=== PATIENT | female | born 1980 | race Caucasian/White ===

== ENCOUNTER → 2016-06-25 | Outpatient (CLI) | payer OTHER ==
[2016-06-25 20:46] LABS: FOLATE > 24.0 NG/ML; VITAMIN B12 LEVEL 1085 PG/ML
== END ==
LOC: M WUC 16:18
PROVIDERS: ATTEND Physician Assistant Medical
DX: E55.9 Vitamin D deficiency, unspecified (principal); E53.9 Vitamin B deficiency, unspecified

== ENCOUNTER → 2016-10-31 | Outpatient (CLI) | payer OTHER ==
--- NOTE | 2016-10-31 17:45 | REP ---
Clinical: Trauma. Technique: AP, lateral, bilateral oblique views of the right elbow. Findings: Nondisplaced radial head fracture is appreciated with underlying swelling. Lateral view demonstrates elevation of the fat pads consistent with joint effusion. Impression: Nondisplaced fracture of the radial head with joint effusion and swelling. Signed by Daniel Garcia MD 10/31/2016 05:36 P
== END ==
LOC: M WUC 17:19
PROVIDERS: ATTEND Physician Assistant
DX: S50.01XA Contusion of right elbow, initial encounter (principal); W18.30XA Fall on same level, unspecified, initial encounter; Y92.009 Unspecified place in unspecified non-institutional (private) residence as the place of occurrence of the external cause

== ENCOUNTER → 2016-11-11 | Outpatient (CLI) | payer OTHER | LOC: M WUC 08:12 | PROVIDERS: ATTEND Physician Assistant Medical | DX: E55.9 Vitamin D deficiency, unspecified (principal) ==

== ENCOUNTER → 2016-12-04 | Outpatient (REF) | payer OTHER | LOC: M SFHCWAGY 09:29 | PROVIDERS: ATTEND Nurse Practitioner Women's Health | DX: Z12.4 Encounter for screening for malignant neoplasm of cervix (principal) ==

== ENCOUNTER → 2017-01-17 | Outpatient (REF) | payer OTHER | LOC: M LAB REF 18:19 | PROVIDERS: ATTEND Physician Assistant | DX: J02.9 Acute pharyngitis, unspecified (principal) ==

== ENCOUNTER → 2017-02-22 | Outpatient (REF) | payer OTHER ==
[2017-02-23 11:49] LABS: BASO # 0.1 10^3/uL (0.0-0.2); BASO % 1.3 % (0.0-1.0); EOS # 0.4 10^3/uL (0.0-0.50); HEMATOCRIT 41.1 % (36.0-47.0); HEMOGLOBIN 14.2 g/dl (12.0-16.0); IMMATURE GRANULOCYTE % 0.1 % (0-0); LYMPH # 3.7 10^3/uL (1.5-4.5); LYMPH % 42.2 % (24.0-44.0); MEAN CORPUSCULAR HEMOGLOBIN 30.5 pg (27.0-33.0); MEAN CORPUSCULAR HGB CONC 34.5 g/dl (32.0-36.5); MEAN CORPUSCULAR VOLUME 88.2 fl (80.0-96.0); MONO # 0.5 10^3/uL (0.0-0.8); NEUTROPHILS % 46.4 % (36.0-66.0); PLATELET COUNT, AUTOMATED 269 10^3/uL (150-450); RED BLOOD COUNT 4.66 10^6/uL (4.00-5.40); RED CELL DISTRIBUTION WIDTH 11.9 % (11.5-14.5); WHITE BLOOD COUNT 8.7 10^3/uL (4.0-10.0)
[2017-02-23 11:59] LABS: ESTIMATED AVERAGE GLUCOSE 154 MG/DL (60-110)
[2017-02-23 12:09] LABS: ALBUMIN 4.1 GM/DL (3.2-5.2); ALBUMIN/GLOBULIN RATIO 1.21 (1.00-1.93); ALKALINE PHOSPHATASE 67 U/L (45-117); ALT/SGPT 91 U/L (12-78); ANION GAP 10 MEQ/L (8-16); AST/SGOT 79 U/L (7-37); BILIRUBIN,TOTAL 0.9 MG/DL (0.2-1.0); BLOOD UREA NITROGEN 12 MG/DL (7-18); CALCIUM LEVEL 9.4 MG/DL (8.5-10.1); CARBON DIOXIDE LEVEL 29 MEQ/L (21-32); CHLORIDE LEVEL 99 MEQ/L (98-107); CHOLESTEROL LEVEL 213 MG/DL (<200); CHOLESTEROL RISK RATIO 5.756 (<5); CREATININE FOR GFR 0.68 MG/DL (0.55-1.02); GLOMERULAR FILTRATION RATE > 60.0 (>60); GLUCOSE, FASTING 202 MG/DL (70-105); HDL CHOLESTEROL 37 MG/DL (>40); NON-HDL-C 176 MG/DL; POTASSIUM SERUM 3.8 MEQ/L (3.5-5.1); SODIUM LEVEL 138 MEQ/L (136-145); TOTAL PROTEIN 7.5 GM/DL (6.4-8.2); TRIGLYCERIDES LEVEL 430 MG/DL (<150)
[2017-02-23 12:20] LABS: CREATININE, URINE 92.4 MG/DL; MALB URINE SIEMENS 33.8 MG/L; MAU/CREAT RATIO 36.5 MCG/MG (0.0-30.0)
== END ==
LOC: M SFHCLERA 15:34
DX: I10 Essential (primary) hypertension (principal)

== ENCOUNTER → 2017-03-05 | Outpatient (CLI) | payer OTHER ==
[2017-03-05 21:01] LABS: TOTAL 25(OH) VITAMIN D 24.5 NG/ML (30.0-100.0); VITAMIN B12 LEVEL 1253 PG/ML
[2017-03-08 11:42] LABS: FOLATE > 24.0 NG/ML
== END ==
LOC: M WUC 13:30
DX: E55.9 Vitamin D deficiency, unspecified (principal); E53.9 Vitamin B deficiency, unspecified

== ENCOUNTER → 2017-03-05 | Outpatient (CLI) | payer OTHER ==
[2017-03-05 20:38] LABS: ESTIMATED AVERAGE GLUCOSE 160 MG/DL (60-110); HEMOGLOBIN A1c 7.2 %
== END ==
LOC: M WUC 13:26
DX: R73.09 Other abnormal glucose (principal)

== ENCOUNTER → 2017-06-30 | Outpatient (CLI) | payer OTHER ==
[2017-06-30 19:53] LABS: TOTAL 25(OH) VITAMIN D 23.7 NG/ML (30.0-100.0)
[2017-06-30 19:54] LABS: VITAMIN B12 LEVEL 609 PG/ML (247-911)
[2017-06-30 19:55] LABS: FOLATE 22.2 NG/ML (>5.4)
== END ==
LOC: M WUC 16:21
DX: E55.9 Vitamin D deficiency, unspecified (principal); E53.8 Deficiency of other specified B group vitamins; R20.9 Unspecified disturbances of skin sensation
CPT/HCPCS: 82746

== ENCOUNTER → 2017-08-17 | Outpatient (REF) | payer OTHER ==
[2017-08-17 11:30] LABS: ESTIMATED AVERAGE GLUCOSE 134 MG/DL (60-110); HEMOGLOBIN A1c 6.3 %
== END ==
LOC: M SFHCLERA 09:19
DX: E11.9 Type 2 diabetes mellitus without complications (principal)

== ENCOUNTER → 2018-05-17 | Outpatient (CLI) | payer OTHER ==
[2018-05-17 09:48] LABS: BASO # 0.1 10^3/uL (0.0-0.2); BASO % 1.4 % (0.0-1.0); EOS # 0.3 10^3/uL (0.0-0.50); EOS % 3.4 % (0.0-3.0); HEMATOCRIT 39.8 % (36.0-47.0); HEMOGLOBIN 13.6 g/dl (12.0-15.5); LYMPH # 3.5 10^3/uL (1.5-4.5); LYMPH % 47.8 % (24.0-44.0); MEAN CORPUSCULAR HEMOGLOBIN 30.4 pg (27.0-33.0); MEAN CORPUSCULAR HGB CONC 34.2 g/dl (32.0-36.5); MONO # 0.4 10^3/uL (0.0-0.8); MONO % 5.4 % (0.0-5.0); NEUTROPHILS # 3.1 10^3/uL (1.8-7.7); NEUTROPHILS % 41.9 % (36.0-66.0); PLATELET COUNT, AUTOMATED 258 10^3/uL (150-450); RED BLOOD COUNT 4.47 10^6/uL (4.00-5.40); WHITE BLOOD COUNT 7.4 10^3/uL (4.0-10.0)
[2018-05-17 10:26] LABS: CREATININE, URINE 59.9 MG/DL; MALB URINE SIEMENS 12.2 MG/L; MAU/CREAT RATIO 20.3 MCG/MG (0.0-30.0)
[2018-05-17 10:27] LABS: ALBUMIN 3.9 GM/DL (3.2-5.2); ALT/SGPT 74 U/L (12-78); BILIRUBIN,TOTAL 0.7 MG/DL (0.2-1.0); BLOOD UREA NITROGEN 12 MG/DL (7-18); CALCIUM LEVEL 8.9 MG/DL (8.5-10.1); CARBON DIOXIDE LEVEL 26 MEQ/L (21-32); CHLORIDE LEVEL 100 MEQ/L (98-107); CHOLESTEROL LEVEL 242 MG/DL (<200); CHOLESTEROL RISK RATIO 7.117 (<5); CREATININE FOR GFR 0.71 MG/DL (0.55-1.30); GLOMERULAR FILTRATION RATE > 60.0 (>60); GLUCOSE, FASTING 132 MG/DL (70-100); HDL CHOLESTEROL 34 MG/DL (>40); NON-HDL-C 208 MG/DL; POTASSIUM SERUM 3.9 MEQ/L (3.5-5.1); SODIUM LEVEL 136 MEQ/L (136-145); TOTAL PROTEIN 7.2 GM/DL (6.4-8.2); TRIGLYCERIDES LEVEL 541 MG/DL (<150)
[2018-05-17 10:28] LABS: HEMOGLOBIN A1c 6.9 %
== END ==
LOC: M WUC 08:11
PROVIDERS: ATTEND Family Medicine
DX: E11.9 Type 2 diabetes mellitus without complications (principal)

== ENCOUNTER → 2018-06-29 | Outpatient (CLI) | payer OTHER ==
[2018-06-29 21:43] LABS: FOLATE 22.1 NG/ML (>5.4); TOTAL 25(OH) VITAMIN D 43.6 NG/ML (30.0-100.0)
== END ==
LOC: M WUC 16:59
PROVIDERS: ATTEND Physician Assistant Medical
DX: R53.83 Other fatigue (principal); E55.9 Vitamin D deficiency, unspecified

== ENCOUNTER → 2018-08-16 | Outpatient (CLI) | payer OTHER ==
[2018-08-16 10:22] LABS: ALT/SGPT 73 U/L (12-78); BILIRUBIN,TOTAL 0.8 MG/DL (0.2-1.0); BLOOD UREA NITROGEN 7 MG/DL (7-18); CARBON DIOXIDE LEVEL 26 MEQ/L (21-32); CHLORIDE LEVEL 100 MEQ/L (98-107); CHOLESTEROL LEVEL 183 MG/DL (<200); CHOLESTEROL RISK RATIO 5.083 (<5); CREATININE FOR GFR 0.73 MG/DL (0.55-1.30); GLOMERULAR FILTRATION RATE > 60.0 (>60); GLUCOSE, FASTING 159 MG/DL (70-100); HDL CHOLESTEROL 36 MG/DL (>40); LDL CHOLESTEROL 74 MG/DL (<100); NON-HDL-C 147 MG/DL; POTASSIUM SERUM 3.8 MEQ/L (3.5-5.1); SODIUM LEVEL 137 MEQ/L (136-145); TOTAL PROTEIN 7.5 GM/DL (6.4-8.2); TRIGLYCERIDES LEVEL 365 MG/DL (<150)
[2018-08-16 11:17] LABS: HEMOGLOBIN A1c 7.4 %
[2018-08-20 08:42] LABS: F002-IgE Milk < 0.10 kU/L (Class 0); F004-IgE Wheat < 0.10 kU/L (Class 0); F013-IgE Peanut < 0.10 kU/L (Class 0); F014-IgE Soybean < 0.10 kU/L (Class 0); F026-IgE Pork < 0.10 kU/L (Class 0); F027-IgE Beef < 0.10 kU/L (Class 0); F245-IgE Egg, Whole < 0.10 kU/L (Class 0); FX02-IgE Food Mix (Sea Foods) Negative (.)
== END ==
LOC: M WUC 08:07
PROVIDERS: ATTEND Family Medicine
DX: K90.49 Malabsorption due to intolerance, not elsewhere classified (principal); E78.5 Hyperlipidemia, unspecified; E11.9 Type 2 diabetes mellitus without complications

== ENCOUNTER → 2018-11-15 | Outpatient (CLI) | payer OTHER ==
[2018-11-15 10:30] LABS: HEMOGLOBIN A1c 6.4 %
== END ==
LOC: M WUC 08:23
PROVIDERS: ATTEND Family Medicine
DX: E11.9 Type 2 diabetes mellitus without complications (principal)

== ENCOUNTER → 2018-11-23 | Outpatient (REF) | payer OTHER ==
[2018-11-26 00:13] LABS: DEHYDROEPIANDROSTERONE SULFATE 71.3 ug/dL (57.3-279.2); TESTOSTERONE FREE (DIRECT) 0.7 pg/mL (0.0-4.2)
== END ==
LOC: M SFHCLERA 16:17
PROVIDERS: ATTEND Family Medicine
DX: E28.1 Androgen excess (principal)

== ENCOUNTER → 2019-05-18 | Outpatient (REF) | payer OTHER ==
[2019-05-18 15:06] LABS: ALBUMIN 4.3 GM/DL (3.2-5.2); ALT/SGPT 75 U/L (12-78); BILIRUBIN,TOTAL 0.7 MG/DL (0.2-1.0); BLOOD UREA NITROGEN 11 MG/DL (7-18); CALCIUM LEVEL 9.6 MG/DL (8.5-10.1); CARBON DIOXIDE LEVEL 29 MEQ/L (21-32); CHLORIDE LEVEL 102 MEQ/L (98-107); CHOLESTEROL LEVEL 214 MG/DL (<200); CHOLESTEROL RISK RATIO 5.631 (<5); GLOMERULAR FILTRATION RATE > 60.0 (>60); GLUCOSE, FASTING 214 MG/DL (70-100); HDL CHOLESTEROL 38 MG/DL (>40); NON-HDL-C 176 MG/DL; POTASSIUM SERUM 4.4 MEQ/L (3.5-5.1); SODIUM LEVEL 138 MEQ/L (136-145); TOTAL PROTEIN 7.9 GM/DL (6.4-8.2); TRIGLYCERIDES LEVEL 641 MG/DL (<150)
[2019-05-18 15:19] LABS: CREATININE, URINE 48.4 MG/DL; MALB URINE SIEMENS 10.7 MG/L; MAU/CREAT RATIO 22.1 MCG/MG (0.0-30.0)
== END ==
LOC: M LABNEURO 13:34
PROVIDERS: ATTEND Family Medicine
DX: E11.9 Type 2 diabetes mellitus without complications (principal)

== ENCOUNTER → 2019-08-29 | Outpatient (CLI) | payer OTHER ==
[2019-08-29 10:55] LABS: BASO # 0.1 10^3/uL (0.0-0.2); BASO % 1.1 % (0.0-1.0); EOS # 0.4 10^3/uL (0.0-0.5); EOS % 4.4 % (0.0-3.0); HEMATOCRIT 45.3 % (36.0-47.0); LYMPH # 3.4 10^3/uL (1.5-5.0); LYMPH % 42.6 % (24.0-44.0); MEAN CORPUSCULAR HEMOGLOBIN 29.7 pg (27.0-33.0); MEAN CORPUSCULAR HGB CONC 33.1 g/dl (32.0-36.5); MEAN CORPUSCULAR VOLUME 89.7 fl (80.0-96.0); MONO # 0.5 10^3/uL (0.0-0.8); MONO % 5.8 % (0.0-5.0); NEUTROPHILS # 3.6 10^3/uL (1.5-8.5); NEUTROPHILS % 45.8 % (36.0-66.0); PLATELET COUNT, AUTOMATED 245 10^3/uL (150-450); RED BLOOD COUNT 5.05 10^6/uL (4.00-5.40); WHITE BLOOD COUNT 7.9 10^3/uL (4.0-10.0)
[2019-08-29 12:15] LABS: BLOOD UREA NITROGEN 12 MG/DL (7-18); CALCIUM LEVEL 9.4 MG/DL (8.5-10.1); CARBON DIOXIDE LEVEL 23 MEQ/L (21-32); CHLORIDE LEVEL 99 MEQ/L (98-107); CHOLESTEROL LEVEL 202 MG/DL (<200); CHOLESTEROL RISK RATIO 5.771 (<5); CREATININE FOR GFR 0.63 MG/DL (0.55-1.30); GLOMERULAR FILTRATION RATE > 60.0 (>60); GLUCOSE, FASTING 140 MG/DL (70-100); HDL CHOLESTEROL 35 MG/DL (>40); NON-HDL-C 167 MG/DL; POTASSIUM SERUM 4.1 MEQ/L (3.5-5.1); SODIUM LEVEL 136 MEQ/L (136-145); TRIGLYCERIDES LEVEL 489 MG/DL (<150)
[2019-08-29 12:27] LABS: MALB URINE SIEMENS 34.7 MG/L
[2019-08-29 15:06] LABS: HEMOGLOBIN A1c 6.5 %
== END ==
LOC: M LAB 09:16
PROVIDERS: ATTEND Family Medicine
DX: E11.9 Type 2 diabetes mellitus without complications (principal); E78.5 Hyperlipidemia, unspecified

== ENCOUNTER → 2019-11-21 | Outpatient (REF) | payer OTHER | LOC: M SFHCWAGY 13:03 | PROVIDERS: ATTEND Nurse Practitioner Women's Health | DX: Z12.4 Encounter for screening for malignant neoplasm of cervix (principal) ==

== ENCOUNTER → 2019-12-25 | Outpatient (CLI) | payer OTHER ==
[2019-12-25 09:03] LABS: BLOOD UREA NITROGEN 10 MG/DL (7-18); CARBON DIOXIDE LEVEL 26 MEQ/L (21-32); CHLORIDE LEVEL 102 MEQ/L (98-107); CHOLESTEROL LEVEL 187 MG/DL (<200); CHOLESTEROL RISK RATIO 4.921 (<5); CREATININE FOR GFR 0.76 MG/DL (0.55-1.30); GLOMERULAR FILTRATION RATE > 60.0 (>60); GLUCOSE, FASTING 136 MG/DL (70-100); HDL CHOLESTEROL 38 MG/DL (>40); LDL CHOLESTEROL 70 MG/DL (<100); NON-HDL-C 149 MG/DL; SODIUM LEVEL 136 MEQ/L (136-145); TRIGLYCERIDES LEVEL 393 MG/DL (<150)
[2019-12-25 11:37] LABS: HEMOGLOBIN A1c 6.4 %
== END ==
LOC: M LAB 07:52
PROVIDERS: ATTEND Family Medicine
DX: E11.9 Type 2 diabetes mellitus without complications (principal); E78.5 Hyperlipidemia, unspecified

== ENCOUNTER 2020-02-26 17:15 | Emergency (ER) | payer OTHER ==
[~2020-02-26] VITALS: Ht 157.5 cm; Wt 82.0 kg
--- OUTSIDE RECORDS SUMMARY | 2020-02-26 17:21 | CCD ---
Author Author [facility] Organization [facility] Address Unknown Phone Unavailable Care Team Providers Care Cheese Production Supervisor Name Role Phone CrowleyEugene love Unavailable PROBLEMS Type Condition ICD9-CM Code [id number] Code Onset Dates Condition S tatus SNOMED Code Notes Problem Vitamin D deficiency E55.9 Active 51731023 Problem Hypertension I10 Active 74736671 Problem Non morbid obesity due to excess calories E66.09 Active 809545075 Problem Body mass index (BMI) 34.0-34.9, adult Z68.34 Active 491816184944828 Problem Chronic fatigue R53.82 Active 99986361 Problem Hypertriglyceridemia E78.1 Active 006434992 Problem Type 2 diabetes mellitus wit hout complication, without long-term current use of insulin E11.9 Active 913648457 Problem Hyperandrogenism E28.8 Active 272726818 Problem Essential hypertension I10 Active 04773343 Problem High triglycerides E78.1 Active 394504381 Problem Hyperlipidemia, unspecified hyperlipidemia type E7 8.5 Active 27274146 Problem Influenza vaccination declined Z28.21 Active 3 72852265 Problem Dyslipidemia E78.5 Active 401439410 Problem Food intolerance K90.49 Active 519664296 Problem Influenza vaccination declined by patient Z28.21 Active 679285840 ALLERGIES Allergen (clinical drug ingredient) Drug/Non Drug Allergy do cumented on EMR Reaction Allergy Type Onset Date Status Seasonal nasal congestion, plugged ears Non Drug Allergy Active ENCOUNTERS from 1980 to 2020-01-16 Encounter Location Date Provider Diagnosis [facility] [address] [place] [address] Dec, Eugene Crowley IMMUNIZATIONS Vaccine Route Administration Date Status Influenza (18 yrs & older) Flublok Unknown Feb 24, 2018 Refused Influenza (6mo & up) Fluzone Unknown May 24, 2018 Ref used Influenza (6mo & up) Fluzone Unknown Dec 04, 2016 Oth ers Influenza (6mo & up) Fluzone Unknown Jan 31, 2014 Ref used SOCIAL HISTORY Tobacco Use: Social History Observation Description Date Details (start date - stop date) Never Smoker Sex Assigned At : Social History Observation Description Sex Assigned At Unknown Audit Question Answer Notes Total Score: 1 Interpretation: Alcohol Education Language: Question Answer Notes Languages spoken: Croatian Voodoo: Question Answer Notes Voodoo 12 Temple Sexual Hx: Question Answer Notes Had sex in the last 12 months (vaginal, oral, or anal)? Yes LMP: 12/05/17 Have you ever had an STD? No Prevention Strategies discussed: Condoms with Men only Use protection? Yes How often? All of the time Drug and Alcohol Question Answer Notes Total Score: 0 Interpretation: No problems reported Alcohol Screening: Question Answer Notes Did you have a drink containing alcohol in the past year? Ye s Points 1 Interpretation Negative How often did you have six or more drinks on one occas ion in the past year? Never (0 points) How many drinks did you have on a typica l day when you were drinking in the past year? 1 or 2 (0 points) How often did you have a drink containing alcohol in t he past year? Monthly or less (1 point) BMI Care Goal Follow-Up Question Answer Notes Above Normal BMI Follow-Up Dietary needs education, Gi ving encouragement to exercise, Weight monitoring Tobacco Use: Question Answer Notes Are you a: never smoker REASON FOR REFERRAL No Information VITAL SIGNS No information MEDICATIONS Medication SIG (Take, Route, Frequency, Duration) Notes Start Da te End Date Status Naproxen 500 MG 1 tablet Orally twice daily as needed for 30 day(s) Active Claritin 10 mg 1 tablet Orally Once a day prn allergies for 30 day(s) Active Nortriptyline HCl 50 MG 1 capsule at bedtime Orally Once a day (Dr Chris santana) Active Sumatriptan Succinate 100 MG 1/2 to 1 tab Orally 2x daily as nee ded (Dr Hampton) Active Metformin HCl 500 MG 1 tab pm with meal Orally Daily for 90 days Active Folic Acid 1 mg 1 tablet Orally every other day (Dr Hampton) Active Hydrochlorothiazide 25 mg 1 tablet Orally Once a day for 90 days Active Atenolol 25 mg 1 tablet Orally bid A ctive Vitamin D3 1000 UNIT 2 capsule Orally Once a day Active Pravastatin Sodium 20 MG 2 tablet Orally Once a day for 90 days Active Vitamin D (Ergocalciferol) 75915 UNIT 1 capsule Orally -Nicole Trickey twice a week Active Jardiance 10 MG 1 tablet Orally Once a day for 90 days Active Restasis 0.05 % 1 into affected eye Ophthalmic Twice a day Active PROCEDURES No Information RESULTS No Results REASON FOR VISIT New Refill Request MEDICAL (GENERAL) HISTORY Type Description Date Medical History hypertension Medical History hyperlipidemia Medical History IBS Medical History dry eye Medical History migraine headaches, Neurology, Nicole Tric villa Medical History vit d deficiency Medical History B12 deficiency Medical History type 2 diabetes without insu oje or complications, controlled on metformin Surgical History colonoscopy 01/24 Surgical History endoscopy 01/24 Surgical History wisdom teeth extract Hospitalization History No Hospitalization history informati on Goals Section No Information Health Concerns No Information MEDICAL EQUIPMENT No Information MENTAL STATUS No Information FUNCTIONAL STATUS No Information ASSESSMENTS No Information PLAN OF TREATMENT Medication Medication Name Sig Start Date Stop Date Metformin HCl 500 MG 1 tab pm with meal Orally Daily for 90 days Jardiance 10 MG 1 tablet Orally Once a day for 90 days Next Appt Details Provider Name:Eugene Crowley, 2020-07-02 03:30:00 PM, [address] [place], [address], Provider Name:Amanda Condon, 2020-11-21 09:00:00 AM, [address] [place], [address], Insurance Providers Payer Name Payer Address Payer Phone Insured Name Patient Relati onship to Insured Coverage Start Date Coverage End Date [facility] [address] [phone] SERGIO KELLY self
--- OUTSIDE RECORDS SUMMARY | 2020-02-26 17:21 | CCD ---
Author Author [facility] Organization [facility] Address Unknown Phone Unavailable Care Team Providers Care Qa Automation Developer Name Role Phone Eugene Crowley Unavailable PROBLEMS Type Condition ICD9-CM Code [id number] Code Onset Dates Condition S tatus SNOMED Code Notes Problem Vitamin D deficiency E55.9 Active 19317900 Problem Hypertension I10 Active 95612235 Problem Non morbid obesity due to excess calories E66.09 Active 462332610 Problem Body mass index (BMI) 34.0-34.9, adult Z68.34 Active 649123206923167 Problem Chronic fatigue R53.82 Active 50911441 Problem Hypertriglyceridemia E78.1 Active 448983629 Problem Type 2 diabetes mellitus wit hout complication, without long-term current use of insulin E11.9 Active 416553977 Problem Hyperandrogenism E28.8 Active 418510895 Problem Essential hypertension I10 Active 90249592 Problem High triglycerides E78.1 Active 131136177 Problem Hyperlipidemia, unspecified hyperlipidemia type E7 8.5 Active 32435616 Problem Influenza vaccination declined Z28.21 Active 3 79925786 Problem Dyslipidemia E78.5 Active 863255904 Problem Food intolerance K90.49 Active 234726178 Problem Influenza vaccination declined by patient Z28.21 Active 752032072 ALLERGIES Allergen (clinical drug ingredient) Drug/Non Drug Allergy do cumented on EMR Reaction Allergy Type Onset Date Status Seasonal nasal congestion, plugged ears Non Drug Allergy Active ENCOUNTERS from 1980 to 2020-02-15 Encounter Location Date Provider Diagnosis [facility] [address] [place] [address] Jan, Eugene Crowley Hypertension I10 IMMUNIZATIONS Vaccine Route Administration Date Status Influenza (18 yrs & older) Flublok Unknown Feb 24, 2018 Refused Influenza (6mo & up) Fluzone Unknown May 24, 2018 Ref used Influenza (6mo & up) Fluzone Unknown Dec 04, 2016 Ot ers Influenza (6mo & up) Fluzone Unknown Jan 31, 2014 Ref used SOCIAL HISTORY Tobacco Use: Social History Observation Description Date Details (start date - stop date) Never Smoker Sex Assigned At : Social History Observation Description Sex Assigned At Unknown Audit Question Answer Notes Total Score: 1 Interpretation: Alcohol Education Language: Question Answer Notes Languages spoken: Bulgarian Hindu: Question Answer Notes Hindu 12 Jewish Sexual Hx: Question Answer Notes Had sex [...] daily as needed for 30 day(s) Active Sumatriptan Succinate 100 MG 1/2 to 1 tab Orally 2x daily as nee ded (Dr Hampton) Active Metformin HCl 500 MG 1 tab pm with meal Orally Daily for 90 days Active Nortriptyline HCl 50 MG 1 capsule at bedtime Orally Once a day (Dr Chris santana) Active Jardiance 10 MG 1 tablet Orally Once a day for 90 days Active Folic Acid 1 mg 1 tablet Orally every other day (Dr Hampton) Active Hydrochlorothiazide 25 mg 1 tablet Orally Once a day for 90 days Active Claritin 10 mg 1 tablet Orally Once a day prn allergies for 30 day(s) Active Vitamin D3 1000 UNIT 2 capsule Orally Once a day Active Pravastatin Sodium 20 MG 2 tablet Orally Once a day for 90 days Active Vitamin D (Ergocalciferol) 48088 UNIT 1 capsule Orally -Nicole Trickey twice a week Active Atenolol 25 mg 1 tablet Orally bid for 90 days Active Restasis 0.05 % [...] Medical History type 2 diabetes without insu joe or complications, controlled on metformin Surgical History colonoscopy 01/24 Surgical History endoscopy 01/24 Surgical History wisdom teeth extract Hospitalization History No Hospitalization history informati on Goals Section No Information Health Concerns No Information MEDICAL EQUIPMENT No Information MENTAL STATUS No Information FUNCTIONAL STATUS No Information ASSESSMENTS Encounter Date Diagnosis Assessment Notes Treatment Notes Treatm ent Clinical Notes Jan, Hypertension (ICD-10 - I10) PLAN OF TREATMENT Medication Medication Name Sig Start Date Stop Date Jardiance 10 MG 1 tablet Orally Once a day for 90 days Atenolol 25 mg 1 tablet Orally bid for 90 days Metformin HCl 500 MG 1 tab pm with meal Orally Daily for 90 days Next Appt Details Provider Name:Eugene Crowley, 2020-07-02 03:30:00 PM, [address] [place], [address], Provider Name:Amanda Condon, 2020-11-21 09:00:00 AM, [address] [place], [address], Insurance Providers Payer Name Payer Address Payer Phone Insured Name Patient Relati onship to Insured Coverage Start Date Coverage End Date [facility] [address] [facility] [phone] SERGIO KELLY
--- OUTSIDE RECORDS SUMMARY | 2020-02-26 17:21 | CCD ---
Author Organization Unknown Address [address] [place] [address] Phone [phone] Care Team Providers Care Inspector Finishing Name Role Phone Josef Otero Unavailable Unavailable Allergies None recorded. Medications None recorded. Problems None recorded. Procedures None recorded. Results Lab Results None recorded. Past Encounters 12/13/2019 Administration of Influenza Vaccine GABRIELLA SimpsonC: [address] [facility], [facility] [address], [place] [address], Ph. Social History None recorded. Vaccine List Vaccine Type influenza, injectable, quadrivalent, pre servative free 12/13/20190.5 mL Plan of Care Reminders Provider Appointments None recorded. Lab None recorded. Referral None recorded. Procedures None recorded. Surgeries None recorded. Imaging None recorded. Vitals None recorded.
--- OUTSIDE RECORDS SUMMARY | 2020-02-26 17:21 | CCD ---
Author Author [facility] Organization [facility] Address Unknown Phone Unavailable Care Team Providers Care Supervisor Wire Rope Fabrication Name Role Phone Amanda Condon Unavailable PROBLEMS Type Condition ICD9-CM Code [id number] Code Onset Dates Condition S tatus SNOMED Code Notes Problem Vitamin D deficiency E55.9 Active 41087364 Problem Hypertension I10 Active 03390546 Problem Non morbid obesity due to excess calories E66.09 Active 014730409 Problem Body mass index (BMI) 34.0-34.9, adult Z68.34 Active 922752881797020 Problem Chronic fatigue R53.82 Active 73128962 Problem Hypertriglyceridemia E78.1 Active 848020471 Problem Type 2 diabetes mellitus wit hout complication, without long-term current use of insulin E11.9 Active 632840553 Problem Hyperandrogenism E28.8 Active 411441065 Problem Essential hypertension I10 Active 38083811 Problem High triglycerides E78.1 Active 554042336 Problem Hyperlipidemia, unspecified hyperlipidemia type E7 8.5 Active 41911509 Problem Influenza vaccination declined Z28.21 Active 3 26026256 Problem Dyslipidemia E78.5 Active 210933044 Problem Food intolerance K90.49 Active 311471145 Problem Influenza vaccination declined by patient Z28.21 Active 994214511 ALLERGIES Allergen (clinical drug ingredient) Drug/Non Drug Allergy do cumented on EMR Reaction Allergy Type Onset Date Status Seasonal nasal congestion, plugged ears Non Drug Allergy Active ENCOUNTERS from 1980 to 2019-12-12 Encounter Location Date Provider Diagnosis [facility] [address] [place] [address] Nov, Amanda Condon IMMUNIZATIONS Vaccine Route Administration Date Status Influenza [...] Education Language: Question Answer Notes Languages spoken: Azerbaijani Yazdanism: Question Answer Notes Yazdanism 12 Yazdanism Sexual Hx: Question Answer Notes Had sex [...] MEDICATIONS Medication SIG (Take, Route, Frequency, Duration) Start Date En d Date Status Vitamin C 500mg 1 tablet orally daily Not -Taking Nortriptyline HCl 50 MG 1 capsule at bedtime Orally Once a day (Dr Hampton) Active Pravastatin Sodium 20 MG 2 tablet Orally Once a day for 90 days Active Folic Acid 1 mg 1 tablet Orally every other day (Dr Hampton) Active Naproxen 500 MG 1 tablet Orally twice daily as needed for 30 day(s) Active Metronidazole 500 MG 1 tablet Orally bid for 7 day(s) Nov, Active Restasis 0.05 % 1 into affected eye Ophthalmic Twice a day Active Vitamin D-[address] 1000 UNIT 5 tablet Orally Once a day Not-Taking Fluconazole 150 MG 1 tablet Orally daily for 1 days Nov, Active Vitamin D (Ergocalciferol) 57471 UNIT 1 capsule Orally -Nicole Trickey twice a week Active Claritin 10 mg 1 tablet Orally Once a day prn allergies for 30 day( s) Active Vitamin D 2000 UNIT 1 capsule Orally once weekly for low vit d Not-Taking Jardiance 10 MG 1 tablet Orally Once a day for 90 Active Sumatriptan Succinate 100 MG 1/2 to 1 tab Orally 2x daily as nee ded (Dr Hampton) Active Hydrochlorothiazide 25 mg 1 tablet Orally Once a day Active Metronidazole 0.75 % 1 applicatorful at bedtime Vaginal Once a day for 5 day(s) Nov, Active Vitamin B12 1000 MCG 1 tablet Orally qod Not-Taking Atenolol 25 mg 1 tablet Orally bid Active Metformin HCl 500 MG 1 tab pm with meal Orally Daily for 90 Active Hydrochlorothiazide 25 25 mg as directed oral qd for 30 day(s) 29 O , 2014 Not-Taking Vitamin D3 1000 UNIT 2 capsule Orally Once a day Active Hyoscyamine Sulfate ER 0.375 MG 1 tablet as needed Ora lly 1/2 tablet twice daily 1/2 to 1 tab every 8 hrs as needed for 90 day(s) Not-Taking PROCEDURES No Information RESULTS No Results REASON FOR VISIT Re:RE:Reoccurring bacterial imbalance infection MEDICAL (GENERAL) HISTORY Type Description Date Medical [...] Medication Name Sig Start Date Stop Date Metronidazole 500 MG 1 tablet Orally bid for 7 day(s) Nov, Fluconazole 150 MG 1 tablet Orally daily for 1 days Nov, Metronidazole 0.75 % 1 applicatorful at bedtime Vaginal Once a day for 5 day(s) Nov, Next Appt Details Provider Name:Eugene Crowley, 2020-01-01 04:00:00 PM, [address] [place], [address], Provider Name:Amanda Condon, 2020-11-21 09:00:00 AM, [address] [place], [address], Insurance Providers Payer Name Payer Address Payer Phone Insured Name Patient Relati onship to Insured Coverage Start Date Coverage End Date [facility] [address] [facility] [phone] SERGIO KELLY self
--- OUTSIDE RECORDS SUMMARY | 2020-02-26 17:21 | CCD ---
Author Author [facility] Organization [facility] Address Unknown Phone Unavailable Care Team Providers Care Cms Expert Name Role Phone Amanda Condon Unavailable PROBLEMS Type Condition ICD9-CM Code [id number] Code Onset Dates Condition S tatus SNOMED Code Notes Problem Vitamin D deficiency E55.9 Active 41068696 Problem Hypertension I10 Active 60386837 Problem Non morbid obesity due to excess calories E66.09 Active 652840076 Problem Body mass index (BMI) 34.0-34.9, adult Z68.34 Active 948711180466134 Problem Chronic fatigue R53.82 Active 71437118 Problem Hypertriglyceridemia E78.1 Active 661381669 Problem Type 2 diabetes mellitus wit hout complication, without long-term current use of insulin E11.9 Active 571145912 Problem Hyperandrogenism E28.8 Active 788345898 Problem Essential hypertension I10 Active 58846350 Problem High triglycerides E78.1 Active 311805601 Problem Hyperlipidemia, unspecified hyperlipidemia type E7 8.5 Active 17484638 Problem Influenza vaccination declined Z28.21 Active 3 25204639 Problem Dyslipidemia E78.5 Active 446921336 Problem Food intolerance K90.49 Active 356314915 Problem Influenza vaccination declined by patient Z28.21 Active 246324220 ALLERGIES Allergen (clinical drug ingredient) Drug/Non Drug Allergy do cumented on EMR Reaction Allergy Type Onset Date Status Seasonal nasal congestion, plugged ears Non Drug Allergy Active ENCOUNTERS from 1980 to 2019-12-04 Encounter Location Date Provider Diagnosis [facility] [address] [place] [address] Nov, Amanda Condon IMMUNIZATIONS Vaccine Route Administration [...] Education Language: Question Answer Notes Languages spoken: Chinese Sikhism: Question Answer Notes Sikhism 12 Worship Sexual Hx: Question Answer Notes Had sex [...] 1 days Nov, Active Vitamin D (Ergocalciferol) 53502 UNIT 1 capsule Orally -Nicole Trickey twice [...] oral qd for 30 day(s) 29 O 2014 Not-Taking Vitamin D3 1000 UNIT 2 capsule Orally Once a day Active Hyoscyamine Sulfate ER 0.375 MG 1 tablet as needed Ora lly 1/2 tablet twice daily 1/2 to 1 tab every 8 hrs as needed for 90 day(s) Not-Taking PROCEDURES No Information RESULTS No Results REASON FOR VISIT rx MEDICAL (GENERAL) HISTORY Type Description Date Medical [...] Details Provider Name:Eugene Crowley, 2020-01-01 04:00:00 PM, [address] [place], [address], Provider Name:Amanda Condon, 2020-11-21 09:00:00 AM, [address] [place], [address], Insurance Providers Payer Name Payer Address Payer Phone Insured Name Patient Relati onship to Insured Coverage Start Date Coverage End Date [facility] [id number] [facility] [phone] SERGIO KELLY self
--- OUTSIDE RECORDS SUMMARY | 2020-02-26 17:21 | CCD ---
Author Author [facility] Organization [facility] Address Unknown Phone Unavailable Care Team Providers Care Home And Family Living Professor Name Role Phone Eugene Crowley Unavailable PROBLEMS Type Condition ICD9-CM Code [id number] Code Onset Dates Condition S tatus SNOMED Code Notes Problem Vitamin D deficiency E55.9 Active 88294286 Problem Hypertension I10 Active 19688899 Problem Non morbid obesity due to excess calories E66.09 Active 992375451 Problem Body mass index (BMI) 34.0-34.9, adult Z68.34 Active 898835203262247 Problem Chronic fatigue R53.82 Active 80897952 Problem Hypertriglyceridemia E78.1 Active 603904886 Problem Type 2 diabetes mellitus wit hout complication, without long-term current use of insulin E11.9 Active 597164514 Problem Hyperandrogenism E28.8 Active 488371531 Problem Essential hypertension I10 Active 78359713 Problem High triglycerides E78.1 Active 146548865 Problem Hyperlipidemia, unspecified hyperlipidemia type E7 8.5 Active 06302574 Problem Influenza vaccination declined Z28.21 Active 3 96775681 Problem Dyslipidemia E78.5 Active 478134558 Problem Food intolerance K90.49 Active 502255258 Problem Influenza vaccination declined by patient Z28.21 Active 136759249 ALLERGIES Allergen (clinical drug ingredient) Drug/Non Drug Allergy do cumented on EMR Reaction Allergy Type Onset Date Status Seasonal nasal congestion, plugged ears Non Drug Allergy Active ENCOUNTERS from 1980 to 2019-12-27 Encounter Location Date Provider Diagnosis [facility] [address] [place] [address] Dec, Eugene Crowley Hypertension I10 IMMUNIZATIONS Vaccine Route [...] Education Language: Question Answer Notes Languages spoken: Swedish Congregation: Question Answer Notes Congregation 12 Worship Sexual Hx: Question Answer Notes [...] Duration) Start Date En d Date Status Nortriptyline HCl 50 MG 1 capsule at bedtime Orally Once a day (Dr Hampton) Active Hyoscyamine Sulfate ER 0.375 MG 1 tablet as needed Ora lly 1/2 tablet twice daily 1/2 to 1 tab every 8 hrs as needed for 90 day(s) Not-Taking Naproxen 500 MG 1 tablet Orally twice daily as needed for 30 day(s) Active Metronidazole 0.75 % 1 applicatorful at bedtime Vaginal Once a day for 5 day(s) Nov, Active Vitamin C 500mg 1 tablet orally daily Not -Taking Hydrochlorothiazide 25 mg 1 tablet Orally Once a day for 90 days Active Pravastatin Sodium 20 MG 2 tablet Orally Once a day for 90 days Active Vitamin D-[address] 1000 UNIT 5 tablet Orally Once a day Not-Taking Fluconazole 150 MG 1 tablet Orally daily for 1 days Nov, Active Vitamin D (Ergocalciferol) 78715 UNIT 1 capsule Orally -Nicole Trickey twice a week Active Vitamin D 2000 UNIT 1 capsule Orally once weekly for low vit d Not-Taking Folic Acid 1 mg 1 tablet Orally every other day (Dr Hampton) Active Metronidazole 500 MG 1 tablet Orally bid for 7 day(s) Nov, Active Vitamin B12 1000 MCG 1 tablet Orally qod Not-Taking Atenolol 25 mg 1 tablet Orally bid Active Vitamin D3 1000 UNIT 2 capsule Orally Once a day Active Claritin 10 mg 1 tablet Orally Once a day prn allergies for 30 day( s) Active Restasis 0.05 % 1 into affected eye Ophthalmic Twice a day Active Metformin HCl 500 MG 1 tab pm with meal Orally Daily for 90 Active Hydrochlorothiazide 25 25 mg as directed oral qd for 30 day(s) 29 O , 2014 Not-Taking Jardiance 10 MG 1 tablet Orally Once a day for 90 Active Sumatriptan Succinate 100 MG 1/2 to 1 tab Orally 2x daily as nee ded (Dr Hampton) Active PROCEDURES No Information RESULTS No Results [...] STATUS No Information ASSESSMENTS Encounter Date Diagnosis Notes Dec, Hypertension (ICD-10 - I10) PLAN OF TREATMENT Medication Medication Name Sig Start Date Stop Date Hydrochlorothiazide 25 mg 1 tablet Orally Once a day for 90 days Fluconazole 150 MG 1 tablet Orally daily for 1 days Nov, Metronidazole 0.75 % 1 applicatorful at bedtime Vaginal Once a day for 5 day(s) Nov, Metronidazole 500 MG 1 tablet Orally bid for 7 day(s) Nov, Next Appt Details Provider Name:Eugene Crowley 2020-01-01 04:00:00 PM, [address] [place], [address], Provider Name:Amanda Condon, 2020-11-21 09:00:00 AM, [address] [place], [address], Insurance Providers Payer Name Payer Address Payer Phone Insured Name Patient Relati onship to Insured Coverage Start Date Coverage End Date [facility] [address] [facility] [phone] SERGIO KELLY self
--- OUTSIDE RECORDS SUMMARY | 2020-02-26 17:21 | CCD ---
Author Author [facility] Organization [facility] Address Unknown Phone Unavailable Care Team Providers Care Acid Tank Cleaner Name Role Phone Amanda Condon Unavailable PROBLEMS Type Condition ICD9-CM Code [id number] Code Onset Dates Condition S tatus SNOMED Code Notes Problem Vitamin D deficiency E55.9 Active 58045874 Problem Hypertension I10 Active 04137706 Problem Non morbid obesity due to excess calories E66.09 Active 011260169 Problem Body mass index (BMI) 34.0-34.9, adult Z68.34 Active 399293868912511 Problem Chronic fatigue R53.82 Active 41490177 Problem Hypertriglyceridemia E78.1 Active 808902315 Problem Type 2 diabetes mellitus wit hout complication, without long-term current use of insulin E11.9 Active 619729432 Problem Hyperandrogenism E28.8 Active 615909583 Problem Essential hypertension I10 Active 97085989 Problem High triglycerides E78.1 Active 721376054 Problem Hyperlipidemia, unspecified hyperlipidemia type E7 8.5 Active 58845207 Problem Influenza vaccination declined Z28.21 Active 3 14441254 Problem Dyslipidemia E78.5 Active 089480780 Problem Food intolerance K90.49 Active 250914826 Problem Influenza vaccination declined by patient Z28.21 Active 342618656 ALLERGIES Allergen (clinical drug ingredient) Drug/Non Drug Allergy do cumented on EMR Reaction Allergy Type Onset Date Status Seasonal nasal congestion, plugged ears Non Drug Allergy Active ENCOUNTERS from 1980 to 2019-11-28 Encounter Location Date Provider Diagnosis [facility] [address] [place] [address] Nov, Amanda Condon Routine gynecologica l examination Z01.419 ; Cervical cancer screening Z12.4 ; Acute vaginitis N76.0 and Other specified bacterial agents as the cause of diseases classified elsewhere B96.89 IMMUNIZATIONS Vaccine Route Administration Date Status Influenza [...] Education Language: Question Answer Notes Languages spoken: Moldovan Episcopal: Question Answer Notes Episcopal 12 Restoration Sexual Hx: Question Answer Notes Had sex [...] REASON FOR REFERRAL No Information VITAL SIGNS Weight 183 lbs Nov, Weight-kg 83.01 kg Nov, Height 62.5 in Nov, BMI 32.93 kg/m2 Nov, Blood pressure systolic 124 mm Hg Nov, Blood pressure diastolic 84 mm Hg Nov, MEDICATIONS Medication SIG (Take, Route, Frequency, Duration) Start Date En d Date Status Naproxen 500 MG 1 tablet Orally twice daily as needed for 30 day(s) Active Vitamin C 500mg 1 tablet orally daily Not -Taking Restasis 0.05 % 1 into affected eye Ophthalmic Twice a day Active Vitamin D 2000 UNIT 1 capsule Orally once weekly for low vit d Not-Taking Pravastatin Sodium 20 MG 2 tablet Orally Once a day for 90 days Active Metronidazole 500 MG 1 tablet Orally bid for 7 day(s) Nov, Active Atenolol 25 mg 1 tablet Orally bid Active Vitamin D-[address] 1000 UNIT 5 tablet Orally Once a day Not-Taking Fluconazole 150 MG 1 tablet Orally daily for 1 days Nov, Active Vitamin D (Ergocalciferol) 68521 UNIT 1 capsule Orally -Nicole Trickey twice a week Active Vitamin B12 1000 MCG 1 tablet Orally qod Not-Taking Claritin 10 mg 1 tablet Orally Once a day prn allergies for 30 day( s) Active Jardiance 10 MG 1 tablet Orally Once a day for 90 Active Hyoscyamine Sulfate ER 0.375 MG 1 tablet as needed Ora lly 1/2 tablet twice daily 1/2 to 1 tab every 8 hrs as needed for 90 day(s) Not-Taking Metformin HCl 500 MG 1 tab pm with meal Orally Daily for 90 Active Folic Acid 1 mg 1 tablet Orally every other day (Dr Hampton) Active Sumatriptan Succinate 100 MG 1/2 to 1 tab Orally 2x daily as nee ded (Dr Hampton) Active Hydrochlorothiazide 25 mg 1 tablet Orally Once a day Active Hydrochlorothiazide 25 25 mg as directed oral qd for 30 day(s) 29 O 2014 Not-Taking Vitamin D3 1000 UNIT 2 capsule Orally Once a day Active Nortriptyline HCl 50 MG 1 capsule at bedtime Orally Once a day (Dr Hampton) Active PROCEDURES No Information RESULTS Component Value Reference Range PAP REQUEST FOR SERVICE Reviewed date:11/24/2019 15:41:48 Interpretation: Normal Performing Lab:[facility], [facility] [address] [facility] [address] , ,[place] [address] REASON FOR VISIT ANNUAL MEDICAL (GENERAL) HISTORY Type Description Date Medical [...] No Information ASSESSMENTS Encounter Date Diagnosis Notes Nov, Routine gynecological examination (ICD-1 0 - Z01.419) Nov, Acute vaginitis (ICD-10 - N76.0) Nov, Cervical cancer screening (ICD-10 - Z12. 4) Nov, Other specified bacterial ag ents as the cause of diseases classified elsewhere (ICD-10 - B96.89) PLAN OF TREATMENT Medication Medication Name Sig Start Date Stop Date Metronidazole 500 MG 1 tablet Orally bid for 7 day(s) Nov, Fluconazole 150 MG 1 tablet Orally daily for 1 days Nov, Treatment Notes Assessment Notes Clinical Notes Acute vaginitis Medication instuctio ns and Education provided to patient, and pt verbalized understanding of same Next Appt Details 1 Year Reason:Annual with mammo Provider Name:Eugene Crowley, 2020-01-01 04:00:00 PM, [address] [place], [address], Provider Name:Amanda Condon, 2020-11-21 09:00:00 AM, [address] [place], [address], Follow Up:1 YearAnnual with mammo Insurance Providers Payer Name Payer Address Payer Phone Insured Name Patient Relati onship to Insured Coverage Start Date Coverage End Date [facility] [address] [facility] [phone] SERGIO KELLY self
--- OUTSIDE RECORDS SUMMARY | 2020-02-26 17:21 | CCD ---
Author Author [facility] Organization [facility] Address Unknown Phone Unavailable Care Team Providers Care Marine Technician Name Role Phone Amanda Condon Unavailable PROBLEMS Type Condition ICD9-CM Code [id number] Code Onset Dates Condition S tatus SNOMED Code Notes Problem Vitamin D deficiency E55.9 Active 74299777 Problem Hypertension I10 Active 40681420 Problem Non morbid obesity due to excess calories E66.09 Active 251034688 Problem Body mass index (BMI) 34.0-34.9, adult Z68.34 Active 105702583219137 Problem Chronic fatigue R53.82 Active 76969707 Problem Hypertriglyceridemia E78.1 Active 560646290 Problem Type 2 diabetes mellitus wit hout complication, without long-term current use of insulin E11.9 Active 635544075 Problem Hyperandrogenism E28.8 Active 398300833 Problem Essential hypertension I10 Active 63618774 Problem High triglycerides E78.1 Active 432901160 Problem Hyperlipidemia, unspecified hyperlipidemia type E7 8.5 Active 69982943 Problem Influenza vaccination declined Z28.21 Active 3 23022639 Problem Dyslipidemia E78.5 Active 761910358 Problem Food intolerance K90.49 Active 686901171 Problem Influenza vaccination declined by patient Z28.21 Active 262023950 ALLERGIES Allergen (clinical drug ingredient) Drug/Non Drug Allergy do cumented on EMR Reaction Allergy Type Onset Date Status Seasonal nasal congestion, plugged ears Non Drug Allergy Active ENCOUNTERS from 1980 to 2020-02-05 Encounter Location Date Provider Diagnosis [facility] [address] [place] [address] Jan, Amanda Condon IMMUNIZATIONS Vaccine Route Administration Date [...] Education Language: Question Answer Notes Languages spoken: Micronesian Cheondoism: Question Answer Notes Cheondoism 12 Presybeterian Sexual Hx: Question Answer Notes Had sex [...] for 90 days Active Vitamin D (Ergocalciferol) 83576 UNIT 1 capsule Orally -Nicole Trickey twice a week Active Jardiance 10 MG 1 tablet Orally Once a day for 90 days Active Restasis 0.05 % 1 into affected eye Ophthalmic Twice a day Active PROCEDURES No Information RESULTS No Results REASON FOR VISIT Re:RE:Bacterial Imbalance Infection Issue MEDICAL (GENERAL) HISTORY Type Description Date Medical [...] Details Provider Name:Eugene Crowley, 2020-07-02 03:30:00 PM, [address] [place], [address], Provider Name:Amanda Condon, 2020-11-21 09:00:00 AM, [address] [place], [address], Insurance Providers Payer Name Payer Address Payer Phone Insured Name Patient Relati onship to Insured Coverage Start Date Coverage End Date [place] [facility] [place] [address] [facility] [address] SERGIO KELLY
--- OUTSIDE RECORDS SUMMARY | 2020-02-26 17:21 | CCD ---
Author Author [facility] Organization [facility] Address Unknown Phone Unavailable Care Team Providers Care Platform Consultant Name Role Phone Eugene Crowley Unavailable PROBLEMS Type Condition ICD9-CM Code JNV93-OL Code Onset Dates Condition S tatus SNOMED Code Notes Problem Vitamin D deficiency E55.9 Active 40341581 Problem Hypertension I10 Active 71633741 Problem Non morbid obesity due to excess calories E66.09 Active 894454402 Problem Body mass index (BMI) 34.0-34.9, adult Z68.34 Active 604202449213279 Problem Chronic fatigue R53.82 Active 89593764 Problem Hypertriglyceridemia E78.1 Active 817478232 Problem Type 2 diabetes mellitus wit hout complication, without long-term current use of insulin E11.9 Active 311011509 Problem Hyperandrogenism E28.8 Active 800987892 Problem Essential hypertension I10 Active 83803104 Problem High triglycerides E78.1 Active 476509694 Problem Hyperlipidemia, unspecified hyperlipidemia type E7 8.5 Active 03617243 Problem Influenza vaccination declined Z28.21 Active 3 49736701 Problem Dyslipidemia E78.5 Active 235318051 Problem Food intolerance K90.49 Active 058127684 Problem Influenza vaccination declined by patient Z28.21 Active 249909863 ALLERGIES Allergen (clinical drug ingredient) Drug/Non Drug Allergy do cumented on EMR Reaction Allergy Type Onset Date Status Seasonal nasal congestion, plugged ears Non Drug Allergy Active ENCOUNTERS from 1980 to 2020-01-30 Encounter Location Date Provider Diagnosis [facility] [address] [place] [address] Dec, Eugene Crowley Other specified bacterial agents as the cause of diseases classified elsewhere B96.89 ; Acute vaginitis N76.0 ; Tachycardia R00.0 ; Thrush B37.0 and Type 2 diabetes mellitus without complication, without long-term current use of insulin E11.9 IMMUNIZATIONS Vaccine Route Administration Date Status Influenza [...] Education Language: Question Answer Notes Languages spoken: [place] Rican Mandaeism: Question Answer Notes Mandaeism 12 Jain Sexual Hx: Question Answer Notes Had sex [...] FOR REFERRAL No Information VITAL SIGNS Weight 182 lbs Dec, Height 62.5 in Dec, BMI 32.75 kg/m2 Dec, Heart Rate 107 /min Dec, Respiratory Rate 17 /min Dec, Temperature 96.8 degrees Fahrenheit Dec, Oximetry 100 Dec, Blood pressure systolic 137 mm Hg Dec, Blood pressure diastolic 92 mm Hg Dec, MEDICATIONS Medication SIG (Take, Route, Frequency, Duration) Notes Start Da te End Date Status Naproxen 500 MG 1 tablet Orally twice daily as needed for 30 day(s) Active Claritin 10 mg 1 tablet Orally Once a day prn allergies for 30 day(s) Active Nortriptyline HCl 50 MG 1 capsule at bedtime Orally Once a day (Dr Chrsi santana) Active Sumatriptan Succinate 100 MG 1/2 [...] for 90 days Active Vitamin D (Ergocalciferol) 61826 UNIT 1 capsule Orally -Nicole Trickey twice a week Active Jardiance 10 MG 1 tablet Orally Once a day for 90 days Active Restasis 0.05 % 1 into affected eye Ophthalmic Twice a day Active PROCEDURES No Information RESULTS No Results REASON FOR VISIT 4 mths MEDICAL (GENERAL) HISTORY Type Description Date Medical [...] Notes Treatment Notes Treatm ent Clinical Notes Dec, Other specified bacterial ag ents as the cause of diseases classified elsewhere (ICD-10 - B96.89) Can call [facility]ICK CAR[facility]ER provider back if necessary. Dec, Acute vaginitis (ICD-10 - N76.0) Patient still having symptoms, recommend probiotics. Call if not improved. Dec, Tachycardia (ICD-10 - R00.0) Regular, sometimes notes palpiations. Denies caffeine use, alcohol use, smoking cigarettes. Denies chest pain, palpitations. Dec, Thrush (ICD-10 - B37.0) Monitor fow now. If sore throat develops, consider thrush. Can start nystatin SS if needed. Dec, Type 2 diabetes mellitus wit hout complication, without long-term current use of insulin (ICD-10 - E11.9) Continue current medications. Order labs to be done. PLAN OF TREATMENT Medication Medication Name Sig Start Date Stop Date Metformin HCl 500 MG 1 tab pm with meal Orally Daily for 90 days Jardiance 10 MG 1 tablet Orally Once a day for 90 days Treatment Notes Assessment Notes Clinical Notes Other specified bacterial agents as the cause of disea ses classified elsewhere Can call BRICK CARRIER provider back if necessary. Acute vaginitis Patient still having symptoms, recommend probiotics. Call if not improved. Tachycardia Regular, sometimes n otes palpiations. Denies caffeine use, alcohol use, smoking cigarettes. Denies chest pain, palpitations. Thrush Monitor fow now. If sore throat develops, consider thrush. Can start nystatin SS if needed. Type 2 diabetes mellitus without complic ation, without long-term current use of insulin Continue current medications . Order labs to be done. Future Test Test Name Order Date HEMOGLOBIN A1c [id number] MICROALBUMIN RANDOM [id number] Basic Metabolic Profile (BMP) 20200623 Next Appt Details 6 mth Reason: Provider Name:Eugene Crowley, 2020-07-02 03:30:00 PM, [address] [place], [address], Provider Name:Amanda Condon, 2020-11-21 09:00:00 AM, [address] [place], [address], Insurance Providers Payer Name Payer Address Payer Phone Insured Name Patient Relati onship to Insured Coverage Start Date Coverage End Date [facility] [address] [address] [facility] [address] [phone] SERGIO KELLY self
--- OUTSIDE RECORDS SUMMARY | 2020-02-26 17:21 | CCD ---
Author Author [facility] Organization [facility] Address Unknown Phone Unavailable Care Team Providers Care Passenger Flagman Name Role Phone Amanda Condon Unavailable PROBLEMS Type Condition ICD9-CM Code [id number] Code Onset Dates Condition S tatus SNOMED Code Notes Problem Vitamin D deficiency E55.9 Active 50545174 Problem Hypertension I10 Active 19999429 Problem Non morbid obesity due to excess calories E66.09 Active 881157961 Problem Body mass index (BMI) 34.0-34.9, adult Z68.34 Active 510135132191548 Problem Chronic fatigue R53.82 Active 32397293 Problem Hypertriglyceridemia E78.1 Active 678618284 Problem Type 2 diabetes mellitus wit hout complication, without long-term current use of insulin E11.9 Active 023906806 Problem Hyperandrogenism E28.8 Active 625465078 Problem Essential hypertension I10 Active 83766389 Problem High triglycerides E78.1 Active 221547838 Problem Hyperlipidemia, unspecified hyperlipidemia type E7 8.5 Active 22338731 Problem Influenza vaccination declined Z28.21 Active 3 86015390 Problem Dyslipidemia E78.5 Active 524255927 Problem Food intolerance K90.49 Active 984109054 Problem Influenza vaccination declined by patient Z28.21 Active 240601664 ALLERGIES Allergen (clinical drug ingredient) Drug/Non Drug Allergy do cumented on EMR Reaction Allergy Type Onset Date Status Seasonal nasal congestion, plugged ears Non Drug Allergy Active ENCOUNTERS from 1980 to 2020-02-05 Encounter Location Date Provider Diagnosis [facility] [address] [place] [address] Jan, Amanda Condon IMMUNIZATIONS Vaccine Route Administration [...] Education Language: Question Answer Notes Languages spoken: Comoran Mosque: Question Answer Notes Mosque 12 Scientologist Sexual Hx: Question Answer Notes Had sex [...] for 90 days Active Vitamin D (Ergocalciferol) 42768 UNIT 1 capsule Orally -Nicole Trickey twice a week Active Jardiance 10 MG 1 tablet Orally Once a day for 90 days Active Restasis 0.05 % 1 into affected eye Ophthalmic Twice a day Active PROCEDURES No Information RESULTS No Results REASON FOR VISIT Bacterial Imbalance Infection Issue MEDICAL (GENERAL) HISTORY Type [...] Details Provider Name:Eugene Crowley, 2020-07-02 03:30:00 PM, [address] [place], [address], Provider Name:Amanda Condon, 2020-11-21 09:00:00 AM, [address] [place], [address], Insurance Providers Payer Name Payer Address Payer Phone Insured Name Patient Relati onship to Insured Coverage Start Date Coverage End Date [facility] [address] [address] [facility] [phone] SERGIO KELLY self
--- OUTSIDE RECORDS SUMMARY | 2020-02-26 17:21 | CCD ---
Author Author [facility] Organization [facility] Address Unknown Phone Unavailable Care Team Providers Care Chief Lock Operator Name Role Phone Amanda Condon Unavailable PROBLEMS Type Condition ICD9-CM Code KUQ46-UT Code Onset Dates Condition S tatus SNOMED Code Notes Problem Vitamin D deficiency E55.9 Active 86714610 Problem Hypertension I10 Active 47855035 Problem Non morbid obesity due to excess calories E66.09 Active 755302692 Problem Body mass index (BMI) 34.0-34.9, adult Z68.34 Active 348586707472573 Problem Chronic fatigue R53.82 Active 81628478 Problem Hypertriglyceridemia E78.1 Active 795033654 Problem Type 2 diabetes mellitus wit hout complication, without long-term current use of insulin E11.9 Active 920767049 Problem Hyperandrogenism E28.8 Active 285993493 Problem Essential hypertension I10 Active 30301486 Problem High triglycerides E78.1 Active 313013894 Problem Hyperlipidemia, unspecified hyperlipidemia type E7 8.5 Active 47482224 Problem Influenza vaccination declined Z28.21 Active 3 86572531 Problem Dyslipidemia E78.5 Active 315885696 Problem Food intolerance K90.49 Active 870755319 Problem Influenza vaccination declined by patient Z28.21 Active 160169751 ALLERGIES Allergen (clinical drug ingredient) Drug/Non Drug Allergy do cumented on EMR Reaction Allergy Type Onset Date Status Seasonal nasal congestion, plugged ears Non Drug Allergy Active ENCOUNTERS from 1980 to 2019-12-12 Encounter Location Date Provider Diagnosis [facility] [address] [place] [address] Nov, Amanda Condon IMMUNIZATIONS Vaccine Route Administration [...] Education Language: Question Answer Notes Languages spoken: Burundian Restoration: Question Answer Notes Restoration 12 Yazidism Sexual Hx: Question Answer Notes Had sex [...] 1 days Nov, Active Vitamin D (Ergocalciferol) 67890 UNIT 1 capsule Orally -Nicole Trickey twice [...] Details Provider Name:Eugene Crowley, 2020-01-01 04:00:00 PM, [address] [place], [address], Provider Name:Amanda Condon, 2020-11-21 09:00:00 AM, [address] [place], [address], Insurance Providers Payer Name Payer Address Payer Phone Insured Name Patient Relati onship to Insured Coverage Start Date Coverage End Date [facility] [address] [facility] [phone] SERGIO KELLY self
--- OUTSIDE RECORDS SUMMARY | 2020-02-26 17:21 | CCD ---
Author Author [facility] Organization [facility] Address Unknown Phone Unavailable Care Team Providers Care Electric System Operator Name Role Phone Amanda Condon Unavailable PROBLEMS Type Condition ICD9-CM Code WNV96-MP Code Onset Dates Condition S tatus SNOMED Code Notes Problem Vitamin D deficiency E55.9 Active 03508571 Problem Hypertension I10 Active 43845268 Problem Non morbid obesity due to excess calories E66.09 Active 003183888 Problem Body mass index (BMI) 34.0-34.9, adult Z68.34 Active 836819029766139 Problem Chronic fatigue R53.82 Active 51125893 Problem Hypertriglyceridemia E78.1 Active 832244083 Problem Type 2 diabetes mellitus wit hout complication, without long-term current use of insulin E11.9 Active 463539019 Problem Hyperandrogenism E28.8 Active 999370398 Problem Essential hypertension I10 Active 26530726 Problem High triglycerides E78.1 Active 091414879 Problem Hyperlipidemia, unspecified hyperlipidemia type E7 8.5 Active 45098800 Problem Influenza vaccination declined Z28.21 Active 3 05790643 Problem Dyslipidemia E78.5 Active 517743036 Problem Food intolerance K90.49 Active 145527934 Problem Influenza vaccination declined by patient Z28.21 Active 023698578 ALLERGIES Allergen (clinical drug ingredient) Drug/Non Drug Allergy do cumented on EMR Reaction Allergy Type Onset Date Status Seasonal nasal congestion, plugged ears Non Drug Allergy Active ENCOUNTERS from 1980 to 2019-12-12 Encounter Location Date Provider Diagnosis [facility] [address] [place] [address] Nov, Amanda Condon IMMUNIZATIONS Vaccine Route Administration [...] Education Language: Question Answer Notes Languages spoken: Cymraes Congregation: Question Answer Notes Congregation 12 Judaism Sexual Hx: Question Answer Notes Had sex [...] 1 days Nov, Active Vitamin D (Ergocalciferol) 65894 UNIT 1 capsule Orally -Nicole Trickey twice [...] Information RESULTS No Results REASON FOR VISIT RE:Re:RE:Reoccurring bacterial imbalance infection MEDICAL (GENERAL) HISTORY Type [...] Details Provider Name:Eugene Crowley, 2020-01-01 04:00:00 PM, [address] [place], [address], Provider Name:Amanda Condon, 2020-11-21 09:00:00 AM, [address] [place], [address], Insurance Providers Payer Name Payer Address Payer Phone Insured Name Patient Relati onship to Insured Coverage Start Date Coverage End Date [facility] [address] [facility] [phone] SERGIO KELLY self
--- OUTSIDE RECORDS SUMMARY | 2020-02-26 17:22 | CCD ---
Author Author [facility] Organization [facility] Address Unknown Phone Unavailable Care Team Providers Care Cardiologist Name Role Phone Trickey, J Nicole PA Unavailable Unavailable Trickey, J Nicole PA Unavailable Unavailable Trickey, J Nicole PA Unavailable Unavailable Trickey, J Nicole PA Unavailable Unavailable Trickey, J Nicole PA Unavailable Unavailable Trickey, J Nicole PA Unavailable Unavailable Trickey, J Nicole PA Unavailable Unavailable Trickey, J Nicole PA Unavailable Unavailable Trickey, J Nicole PA Unavailable Unavailable Trickey, J Nicole PA Unavailable Unavailable Trickey, J Nicole PA Unavailable Unavailable Trickey, J Nicole PA Unavailable Unavailable Trickey, J Nicole PA Unavailable Unavailable Trickey, J Nicole PA Unavailable Unavailable Trickey, J Nicole PA Unavailable Unavailable Trickey, J Nicole PA Unavailable Unavailable Trickey, J Nicole PA Unavailable Unavailable Trickey, J Nicole PA Unavailable Unavailable Trickey, J Nicole PA Unavailable Unavailable Trickey, J Nicole PA Unavailable Unavailable Trickey, J Nicole PA Unavailable Unavailable Trickey, J Nicole PA Unavailable Unavailable Trickey, J Nicole PA Unavailable Unavailable Trickey, J Nicole PA Unavailable Unavailable Trickey, J Nicole PA Unavailable Unavailable Trickey, J Nicole PA Unavailable Unavailable Trickey, J Nicole PA Unavailable Unavailable Trickey, J Nicole PA Unavailable Unavailable Trickey, J Nicole PA Unavailable Unavailable Trickey, J Nicole PA Unavailable Unavailable Trickey, J Nicole PA Unavailable Unavailable Trickey, J Nicole PA Unavailable Unavailable Trickey, J Nicole PA Unavailable Unavailable Trickey, J Nicole PA Unavailable Unavailable Trickey, J Nicole PA Unavailable Unavailable Trickey, J Nicole PA Unavailable Unavailable Trickey, J Nicole PA Unavailable Unavailable Trickey, J Nicole PA Unavailable Unavailable Trickey, J Nicole PA Unavailable Unavailable Trickey, J Nicole PA Unavailable Unavailable Trickey, J Nicole PA Unavailable Unavailable Trickey, J Nicole PA Unavailable Unavailable Trickey, J Nicole PA Unavailable Unavailable Trickey, J Nicole PA Unavailable Unavailable Trickey, J Nicole PA Unavailable Unavailable Trickey, J Nicole PA Unavailable Unavailable Trickey, J Nicole PA Unavailable Unavailable Trickey, J Nicole PA Unavailable Unavailable Trickey, J Nicole PA Unavailable Unavailable Trickey, J Nicole PA Unavailable Unavailable Trickey, J Nicole PA Unavailable Unavailable Trickey, J Nicole PA Unavailable Unavailable OTERO, GOLDY JOSEF RPA-C Unavailable Unavailable OTREO, GOLDY JOSEF RPA-C Unavailable Unavailable OTERO, GOLDY JOSEF RPA-C Unavailable Unavailable OTERO, GOLDY JOSEF RPA-C Unavailable Unavailable OTERO, GOLDY JOSEF RPA-C Unavailable Unavailable OTERO, GOLDY JOSEF RPA-C Unavailable Unavailable OTERO, GOLDY JOSEF RPA-C Unavailable Unavailable OTERO, GOLDY JOSEF RPA-C Unavailable Unavailable OTERO, GOLDY JOSEF RPA-C Unavailable Unavailable OTERO, GOLDY JOSEF RPA-C Unavailable Unavailable OTERO, GOLDY JOSEF RPA-C Unavailable Unavailable OTERO, GOLDY JOSEF RPA-C Unavailable Unavailable OTERO, GOLDY JOSEF RPA-C Unavailable Unavailable OTERO, GOLDY JOSEF RPA-C Unavailable Unavailable OTERO, GOLDY JOSEF RPA-C Unavailable Unavailable OTERO, GOLDY JOSEF RPA-C Unavailable Unavailable OTERO, GOLDY JOSEF RPA-C Unavailable Unavailable OTERO, GOLDY JOSEF RPA-C Unavailable Unavailable OTERO, GOLDY JOSEF RPA-C Unavailable Unavailable OTERO, GOLDY JOSEF RPA-C Unavailable Unavailable OTERO, GOLDY JOSEF RPA-C Unavailable Unavailable OTERO, GOLDY JOSEF RPA-C Unavailable Unavailable OTERO, GOLDY JOSEF RPA-C Unavailable Unavailable OTERO, GOLDY JOSEF RPA-C Unavailable Unavailable OTERO, GOLDY JOSEF RPA-C Unavailable Unavailable OTERO, GOLDY JOSEF RPA-C Unavailable Unavailable OTERO, GOLDY JOSEF RPA-C Unavailable Unavailable OTERO, GOLDY JOSEF RPA-C Unavailable Unavailable OTERO, GOLDY JOSEF RPA-C Unavailable Unavailable OTERO, GOLDY JOSEF RPA-C Unavailable Unavailable OTERO, GOLDY JOSEF RPA-C Unavailable Unavailable OTERO, GOLDY JOSEF RPA-C Unavailable Unavailable OTERO, GOLDY JOSEF RPA-C Unavailable Unavailable OTERO, GOLDY JOSEF RPA-C Unavailable Unavailable OTERO, GOLDY JOSEF RPA-C Unavailable Unavailable OTERO, GOLDY JOSEF RPA-C Unavailable Unavailable OTERO, GOLDY JOSEF RPA-C Unavailable Unavailable OTERO, GOLDY JOSEF RPA-C Unavailable Unavailable Re-disclosure Warning The records that you are about to access may contain information from federally-assisted alcohol or drug abuse programs. If such information is present, then the following federally mandated warning applies: This information has been disclosed to you from records protected by federal confidentiality rules (42 CFR part 2). The federal rules prohibit you from making any further disclosure of this information unless further disclosure is expressly permitted by the written consent of the person to whom it pertains or as otherwise permitted by 42 CFR part 2. A general authorization for the release of medical or other information is NOT sufficient for this purpose. The Federal rules restrict any use of the information to criminally investigate or prosecute any alcohol or drug abuse patient.The records that you are about to access may contain highly sensitive health information, the redisclosure of which is protected by Article 27-F of the [facility] Public Health law. If you continue you may have access to information: Regarding HIV / AIDS; Provided by facilities licensed or operated by the [facility] Office of Mental Health; or Provided by the [facility] Office for People With Developmental Disabilities. If such information is present, then the following [facility] mandated warning applies: This information has been disclosed to you from confidential records which are protected by state law. State law prohibits you from making any further disclosure of this information without the specific written consent of the person to whom it pertains, or as otherwise permitted by law. Any unauthorized further disclosure in violation of state law may result in a fine or longterm sentence or both. A general authorization for the release of medical or other information is NOT sufficient authorization for further disc losure. Allergies and Adverse Reactions Type Description Substance Reaction Status Data Source(s ) Seasonal Seasonal Seasonal nasal congestion, plugged ears Acti ve eCW1 ([facility]) Allergy to substance Allergy to substance Allergy to substance UMM ([facility]) Family History Family Member Name Family Member Gender Family Member Status Date o f Status Description Data Source(s) Unknown Male Problem MEDENT ([facility]) Unknown Male Problem MEDENT ([facility]) Unknown Male Problem MEDENT ([facility]) Unknown Male Problem MEDENT ([facility]) Encounters Encounter Providers Location Date Indications Data Source(s ) Unknown [address] [id number] 02/15/2020 12:00:00 AM EST eCW1 ([facility]) Unknown [address] [id number] 02/05/2020 12:00:00 AM EST eCW1 ([facility]) [place] [address] [facility] [place] [address] 02/05/2020 12:00:00 AM EST eCW1 ([facility]) Unknown [address] [id number] 01/15/2020 12:00:00 AM EST eCW1 ([facility]) Outpatient [address] [id number] 01/01/2020 12:00:00 AM EST eCW1 ([facility]) Unknown [address] [id number] 12/26/2019 12:00:00 AM EST eCW1 ([facility]) Josef Otero, GABRIELLAC: [address] [facility] [address], [place] [address], Ph. Attender: JOSEF QUIROZC [facility] Medical 12/13/2019 12:00:00 AM EDT UMM ([facility]) Unknown [address] [facility] [address] [address] 12/12/2019 12:00:00 AM EDT eCW1 ([facility]) [place] [address] [facility] [place] [address] 12/11/2019 12:00:00 AM EDT eCW1 ([facility]) [place] [address] [facility] [place] [address] 12/11/2019 12:00:00 AM EDT eCW1 ([facility]) [place] [address] [facility] [place] [address] 12/04/2019 12:00:00 AM EDT eCW1 ([facility]) [place] [address] [facility] [place] [address] 11/21/2019 12:00:00 AM EDT eCW1 ([facility]) [place] [address] [facility] [place] [address] 11/07/2019 12:00:00 AM EDT eCW1 ([facility]) [place] [address] [facility] [place] [address] 11/07/2019 12:00:00 AM EDT eCW1 ([facility]) Outpatient Attender: Nicole CLEMENTS [facility] n 10/12/2019 02:45:00 PM EDT MEDENT ([facility]) [place] [address] [facility] [place] [address] 09/05/2019 12:00:00 AM EDT eCW1 ([facility]) Outpatient Attender: Nicole CLEMENTS [facility] 07/03/2019 02:30:00 PM EDT MEDENT ([facility]) [facility] [place] [address] [facility] [place] [address] 06/01/2019 12:00:00 AM EDT eCW1 ([facility]) [facility] [place] [address] [facility] [place] [address] 05/25/2019 12:00:00 AM EDT eCW1 ([facility]) [facility] [place] [address] [facility] [place] [address] 02/19/2019 12:00:00 AM EST eCW1 ([facility]) [facility] [place] [address] [facility] [place] [address] 01/08/2019 12:00:00 AM EST eCW1 ([facility]) Immunizations Vaccine Date Status Description Data Source(s) New in 2011. IIV4 12/13/2019 03:50:00 PM EDT completed 0.5 mL UMM ([facility]) Medications Medication Brand Name Start Date Product Form Dose Route Admi nistrative Instructions Pharmacy Instructions Status Indications Reaction Description Data Source(s) 100,000 unit/mL 12/12/2019 12:00:00 AM EDT suspension 200 TAKE 5ML BY MOUTH FOUR TIMES A DAY FOR 10 DAYS TAKE 5ML BY MOUTH FOUR TIMES A DAY FOR 10 DAYS SOLD: 12/12/2019 [facility] Metronidazole 0.0075 MG/MG Vaginal Gel Metronidazole 0 .75 % Metronidazole 0.75 % 12/04/2019 12:00:00 AM EDT active Metronidazole 0.75 % eCW1 ([facility]) Metronidazole 0.0075 MG/MG Vaginal Gel Metronidazole 0 .75 % Metronidazole 0.75 % 12/04/2019 12:00:00 AM EDT active Metronidazole 0.75 % eCW1 ([facility]) 0.75 % 12/04/2019 12:00:00 AM EDT gel 70 INSERT 1 APPLICATORFUL VAGINALLY ONCE DAILY FOR 5 DAYS INSERT 1 APPLICATORFUL VAGINALLY ONCE DAILY FOR 5 DAYS SOLD: 12/04/2019 [facility] Metronidazole 0.0075 MG/MG Vaginal Gel Metronidazole 0 .75 % Metronidazole 0.75 % 12/04/2019 12:00:00 AM EDT active Metronidazole 0.75 % eCW1 ([facility]) Metronidazole 0.0075 MG/MG Vaginal Gel Metronidazole 0 .75 % Metronidazole 0.75 % 12/04/2019 12:00:00 AM EDT active Metronidazole 0.75 % eCW1 ([facility]) Metronidazole 0.0075 MG/MG Vaginal Gel Metronidazole 0 .75 % Metronidazole 0.75 % 12/04/2019 12:00:00 AM EDT active Metronidazole 0.75 % eCW1 ([facility]) Fluconazole 150 MG Oral Tablet Fluconazole 150 MG 11/27/2019 12:00: 00 AM EDT 1.0 {tablet} active Fluconazole 150 MG eCW1 ([facility]) Fluconazole 150 MG Oral Tablet Fluconazole 150 MG 11/27/2019 12:00: 00 AM EDT 1.0 {tablet} active Fluconazole 150 MG eCW1 ([facility]) Fluconazole 150 MG Oral Tablet Fluconazole 150 MG 11/27/2019 12:00: 00 AM EDT 1.0 {tablet} active Fluconazole 150 MG eCW1 ([facility]) 150 mg 11/27/2019 12:00:00 AM EDT tablet 1 TAKE 1 TABLET BY MOUTH ONCE TAKE 1 TABLET BY MOUTH ONCE SOLD: 12/09/2019 [facility] 150 mg 11/27/2019 12:00:00 AM EDT tablet 1 TAKE 1 TABLET BY MOUTH ONCE TAKE 1 TABLET BY MOUTH ONCE SOLD: 11/27/2019 [facility] Fluconazole 150 MG Oral Tablet Fluconazole 150 MG 11/27/2019 12:00: 00 AM EDT 1.0 {tablet} active Fluconazole 150 MG eCW1 ([facility]) Fluconazole 150 MG Oral Tablet Fluconazole 150 MG 11/27/2019 12:00: 00 AM EDT 1.0 {tablet} active Fluconazole 150 MG eCW1 ([facility]) Fluconazole 150 MG Oral Tablet Fluconazole 150 MG 11/27/2019 12:00: 00 AM EDT 1.0 {tablet} active Fluconazole 150 MG eCW1 ([facility]) Metronidazole 500 MG Oral Tablet Metronidazole 500 MG 2019 12:00:00 AM EDT 1.0 {tablet} active Metronidazo le 500 MG eCW1 ([facility]) Metronidazole 500 MG Oral Tablet Metronidazole 500 MG 2019 12:00:00 AM EDT 1.0 {tablet} active Metronidazo le 500 MG eCW1 ([facility]) Metronidazole 500 MG Oral Tablet Metronidazole 500 MG 2019 12:00:00 AM EDT 1.0 {tablet} active Metronidazo le 500 MG eCW1 ([facility]) Metronidazole 500 MG Oral Tablet Metronidazole 500 MG 2019 12:00:00 AM EDT 1.0 {tablet} active Metronidazo le 500 MG eCW1 ([facility]) Metronidazole 500 MG Oral Tablet Metronidazole 500 MG 2019 12:00:00 AM EDT 1.0 {tablet} active Metronidazo le 500 MG eCW1 ([facility]) Metronidazole 500 MG Oral Tablet Metronidazole 500 MG 2019 12:00:00 AM EDT 1.0 {tablet} active Metronidazo le 500 MG eCW1 ([facility]) Metronidazole 500 MG Oral Tablet Metronidazole 500 MG 2019 12:00:00 AM EDT 1.0 {tablet} active Metronidazo le 500 MG eCW1 ([facility]) Metronidazole 500 MG Oral Tablet METRONIDAZOLE 11/21/2019 12:0 0:00 AM EDT tablet 14 TAKE ONE TABLET BY MOUTH TWICE A DAY FOR 7 DAYS TAKE ONE TABLET BY MOUTH TWICE A DAY FOR 7 DAYS SOLD: 11/21/2019 [facility] Ergocalciferol 85415 UNT Oral Capsule Ergocalciferol 04/12/2019 12:00:00 AM EST ORAL active MEDENT ( [facility]) Insurance Providers Payer name Policy type / Coverage type Policy ID Covered green party ID Covered green party's relationship to cuello Policy Cuello Plan Information [facility] [id number] ANSI-Commercial [id number] ANSI-Commercial [id number] ANSI-Commercial [id number] ANSI-Commercial [id number] [employer] [id number] Self [id number] Commercial [id number] Self [id number] ANSI-Commercial [id number] ANSI-Commercial [id number] [facility] [id number] ANSI-Commercial [id number] ANSI-Commercial [id number] [employer] [id number] Self [id number] ANSI-Not a Secondary Insurance [id number] ANSI-Not a Secondary Insurance [id number] ANSI-Commercial [id number] [employer] [id number] SP [id number] [employer] [id number] Self [id number] [employer] U [id number] Self [id number] [employer] U [id number] Self [id number] [employer] U [id number] Self [id number] [employer] (pr) Commercial [id number] Self [id number] [employer]) Commercial [id number] Self [id number] [employer] [id number] Self [id number] [employer] (pr) Commercial [id number] Self [id number] [employer] (pr) Commercial [id number] Self [id number] [employer] [id number] Self [id number] [employer] (pr) Commercial [id number] Self [id number] [employer] (pr) Commercial [id number] Self [id number] [employer] (pr) Commercial [id number] Self [id number] [employer] [id number] Self [id number] [employer] [id number] Self [id number] [employer] [id number] Self [id number] [employer] [id number] Self [id number] [employer] [id number] SP [id number] [employer] Commercial Self [id number] Problems, Conditions, and Diagnoses Code Display Name Description Problem Type Effective Dates Data Source(s) E78.1 080031572 High triglycerides Problem 09/05/2019 12:00: 00 AM EDT eCW1 ([facility]) Surgeries/Procedures Procedure Description Date Indications Data Source(s) Needle electromyography, each extremity, with related paraspinal areas, when performed, done with nerve conduction, amplitude and latency/velocity study; complete, five or more muscles studied, innervated by three or more nerves or four or more spinal levels (list separately in addition to the code for primary procedure). 07/17/2019 12:00:00 AM EDT MEDMARÍA ELENA T ([facility] ) Needle electromyography, each extremity, with related paraspinal areas, when performed, done with nerve conduction, amplitude and latency/velocity study; complete, five or more muscles studied, innervated by three or more nerves or four or more spinal levels (list separately in addition to the code for primary procedure). 07/17/2019 12:00:00 AM EDT MEDEN T ([facility] ) 12031 Nerve conduction studies 13 or more studies NEW 201207/17/2019 12:00:00 AM EDT MEDDAVID ([facility] ) TeleMedicine Est. Pt. Level 3 06/01/2019 12:00:00 AM E DT eCW1 ([facility]) Results ID Date Data Source PAP REQUEST FOR SERVICE 11/24/2019 04:41:48 AM EDT eCW1 ([facility]) Name Value Range Interpretation Code Description Data Elenita rce(s) Supporting Document(s) PAP REQUEST FOR SERVICE eCW1 ( [facility]) ID Date Data Source [id number] 10/12/2019 03:29:00 PM EDT MEDENT ([facility], ) Name Value Range Interpretation Code Description Data Elenita rce(s) Supporting Document(s) Laboratory test finding (navigational concept) Laboratory test result MEDENT ([facility], ) A courtesy copy of this report has been sent to the patient, Calcidiol [Mass/volume] in Serum or Plasma 39.9 ng/mL 30.0-100.0 MEDENT ([facility], ) A courtesy copy of this report has been sent to the patient, ID Date Data Source [id number] 10/12/2019 03:29:00 PM EDT MEDENT ([facility], ) Name Value Range Interpretation Code Description Data Elenita rce(s) Supporting Document(s) Folate (Folic Acid), Serum Laboratory test result MEDENT ([facility], ) A courtesy copy of this report has been sent to the patient, Cobalamin (Vitamin B12) [Mass/volume] in Serum or Plasma 507 pg/mL 2 [id number] MEDENT ([facility], ) A courtesy copy of this report has been sent to the patient, Procedure Social History Code Duration Value Status Description Data Source(s ) Smoking 01/01/2020 12:00:00 AM EST Never Smoker completed Never S moker eCW1 ([facility]) Smoking 01/01/2020 12:00:00 AM EST Never Smoker completed Never S moker eCW1 ([facility]) Smoking 01/01/2020 12:00:00 AM EST Never Smoker completed Never S moker eCW1 ([facility]) Smoking 01/01/2020 12:00:00 AM EST Never Smoker completed Never S moker eCW1 ([facility]) Smoking 01/01/2020 12:00:00 AM EST Never Smoker completed Never S moker eCW1 ([facility]) Smoking 11/21/2019 12:00:00 AM EDT Never Smoker completed Never S moker eCW1 ([facility]) Smoking 11/21/2019 12:00:00 AM EDT Never Smoker completed Never S moker eCW1 ([facility]) Smoking 11/21/2019 12:00:00 AM EDT Never Smoker completed Never S moker eCW1 ([facility]) Smoking 11/21/2019 12:00:00 AM EDT Never Smoker completed Never S moker eCW1 ([facility]) Smoking 11/21/2019 12:00:00 AM EDT Never Smoker completed Never S moker eCW1 ([facility]) Smoking 11/21/2019 12:00:00 AM EDT Never Smoker completed Never S moker eCW1 ([facility]) Smoking 11/21/2019 12:00:00 AM EDT Never Smoker completed Never S moker eCW1 ([facility]) Smoking 09/05/2019 12:00:00 AM EDT Never Smoker completed Never S moker eCW1 ([facility]) Smoking 09/05/2019 12:00:00 AM EDT Never Smoker completed Never S moker eCW1 ([facility]) Vital Signs ID Date Data Source UNK Name Value Range Interpretation Code Description Data Source(s) Diastolic blood pressure 92 mm[Hg] 92 mm[Hg] eCW1 ([facility]) Systolic blood pressure 137 mm[Hg] 137 mm[Hg] e CW1 ([facility]) Body temperature 96.8 [degF] 96.8 [degF] eCW1 ( [facility]) Respiratory rate 17 /min 17 /min eCW1 ([facility]) Heart rate 107 /min 107 /min eCW1 ([facility]) Body mass index (BMI) [Ratio] 32.75 kg/m2 32.75 kg/m2 W1 ([facility]) Body height 62.5 [in_i] 62.5 [in_i] W1 ([facility]) Body weight 182 [lb_av] 182 [lb_av] eCW1 ([facility]) Diastolic blood pressure 84 mm[Hg] 84 mm[Hg] eCW1 ([facility]) Systolic blood pressure 124 mm[Hg] 124 mm[Hg] e CW1 ([facility]) Body mass index (BMI) [Ratio] 32.93 kg/m2 32.93 kg/m2 W1 ([facility]) Body height 62.5 [in_i] 62.5 [in_i] eCW1 ([facility]) Body weight 83.01 kg 83.01 kg eCW1 ([facility]) Body weight 183 [lb_av] 183 [lb_av] eCW1 ([facility]) Respiratory rate 16 /min 16 /min MEDENT ( [facility] ) Heart rate 68 /min 68 /min MEDENT ([facility] ) Diastolic blood pressure 76 mm[Hg] 76 mm[Hg] MEDENT ([facility] ) Systolic blood pressure 118 mm[Hg] 118 mm[Hg] M EDENT ([facility] ) Diastolic blood pressure 88 mm[Hg] 88 mm[Hg] eCW1 ([facility]) Systolic blood pressure 132 mm[Hg] 132 mm[Hg] e CW1 ([facility]) Body temperature 97.7 [degF] 97.7 [degF] eCW1 ( [facility]) Respiratory rate 16 /min 16 /min eCW1 ([facility]) Heart rate 95 /min 95 /min eCW1 ([facility]) Body mass index (BMI) [Ratio] 32.93 kg/m2 32.93 kg/m2 eCW1 ([facility]) Body height 62.5 [in_i] 62.5 [in_i] eCW1 ([facility]) Body weight 183 [lb_av] 183 [lb_av] eCW1 ([facility]) Patient Treatment Plan of Care Planned Activity Planned Date Details Description Data Source (s) Metronidazole 0.0075 MG/MG Vaginal Gel 12/04/2019 12:00:00 AM EDT eCW1 ([facility]) Metronidazole 0.0075 MG/MG Vaginal Gel 12/04/2019 12:00:00 AM EDT eCW1 ([facility]) Metronidazole 0.0075 MG/MG Vaginal Gel 12/04/2019 12:00:00 AM EDT eCW1 ([facility]) Metronidazole 0.0075 MG/MG Vaginal Gel 12/04/2019 12:00:00 AM EDT eCW1 ([facility]) Metronidazole 0.0075 MG/MG Vaginal Gel 12/04/2019 12:00:00 AM EDT eCW1 ([facility]) Fluconazole 150 MG Oral Tablet 11/27/2019 12:00:00 AM EDT eCW1 ([facility]) Fluconazole 150 MG Oral Tablet 11/27/2019 12:00:00 AM EDT eCW1 ([facility]) Fluconazole 150 MG Oral Tablet 11/27/2019 12:00:00 AM EDT eCW1 ([facility]) Fluconazole 150 MG Oral Tablet 11/27/2019 12:00:00 AM EDT eCW1 ([facility]) Fluconazole 150 MG Oral Tablet 11/27/2019 12:00:00 AM EDT eCW1 ([facility]) Fluconazole 150 MG Oral Tablet 11/27/2019 12:00:00 AM EDT eCW1 ([facility]) Metronidazole 500 MG Oral Tablet 11/21/2019 12:00:00 AM EDT eCW1 ([facility]) Metronidazole 500 MG Oral Tablet 11/21/2019 12:00:00 AM EDT eCW1 ([facility]) Metronidazole 500 MG Oral Tablet 11/21/2019 12:00:00 AM EDT eCW1 ([facility]) Metronidazole 500 MG Oral Tablet 11/21/2019 12:00:00 AM EDT eCW1 ([facility]) Metronidazole 500 MG Oral Tablet 11/21/2019 12:00:00 AM EDT eCW1 ([facility]) Metronidazole 500 MG Oral Tablet 11/21/2019 12:00:00 AM EDT eCW1 ([facility]) Metronidazole 500 MG Oral Tablet 11/21/2019 12:00:00 AM EDT eCW1 ([facility])
[2020-02-26 18:35] LABS: HEMATOCRIT 47.8 % (36.0-47.0); HEMOGLOBIN 15.8 g/dl (12.0-15.5); MEAN CORPUSCULAR HEMOGLOBIN 29.3 pg (27.0-33.0); MEAN CORPUSCULAR HGB CONC 33.1 g/dl (32.0-36.5); MEAN CORPUSCULAR VOLUME 88.7 fl (80.0-96.0); PLATELET COUNT, AUTOMATED 276 10^3/uL (150-450); RED BLOOD COUNT 5.39 10^6/uL (4.00-5.40); WHITE BLOOD COUNT 10.6 10^3/uL (4.0-10.0)
[2020-02-26 19:04] LABS: HCG, SERUM QUALITATIVE NEGATIVE (NEGATIVE)
[2020-02-26 19:05] LABS: EOSINOPHILS 3 % (0-3); LYMPHOCYTES 48 % (16-44); MONOCYTES 2 % (0-5); NEUTROPHILS 47 % (28-66); PLATELET ESTIMATE NORMAL (NORMAL)
[2020-02-26] MEDS ORDERED: NS 500 ML IV ONE (19:15)
[2020-02-26 19:18] LABS: ALBUMIN 4.2 GM/DL (3.2-5.2); ALT/SGPT 46 U/L (12-78); BILIRUBIN,DIRECT < 0.1 MG/DL (0.0-0.2); BLOOD UREA NITROGEN 12 MG/DL (7-18); CALCIUM LEVEL 9.8 MG/DL (8.5-10.1); CARBON DIOXIDE LEVEL 24 MEQ/L (21-32); CHLORIDE LEVEL 100 MEQ/L (98-107); CREATININE FOR GFR 0.88 MG/DL (0.55-1.30); GLOMERULAR FILTRATION RATE > 60.0 (>60); GLUCOSE, FASTING 127 MG/DL (70-100); LIPASE 30 U/L (73-393); POTASSIUM SERUM 5.9 MEQ/L (3.5-5.1); SODIUM LEVEL 132 MEQ/L (136-145); TOTAL PROTEIN 8.2 GM/DL (6.4-8.2)
[2020-02-26 19:46] LABS: CK-MB VALUE MASS < 1.0 NG/ML (<3.6); CPK CREATINE PHOSPHOKINASE 168 U/L (26-192); TROPONIN I < 0.02 NG/ML (< 0.10)
[2020-02-26] MEDS ORDERED: ISOVUE-370 76% 100ML VIAL As Ordered ONE (19:51)
[2020-02-26] MEDS ORDERED: VITA50005 PO (19:53)
[2020-02-26] MEDS ORDERED: JARD1TAB PO (19:53)
[2020-02-26] MEDS ORDERED: NORT50CA PO (19:53)
[2020-02-26] MEDS ORDERED: HYDR25TAB PO (19:53)
[2020-02-26] MEDS ORDERED: METF500T13 PO (19:53)
[2020-02-26] MEDS ORDERED: PRAV20TA2 PO (19:53)
[2020-02-26] MEDS ORDERED: ATEN25TA PO (19:53)
--- OUTSIDE RECORDS SUMMARY | 2020-02-26 20:11 | CCD ---
Author Author [facility] Organization [facility] Address Unknown Phone Unavailable Care Team Providers Care Craft Coordinator Name Role Phone Trickey, J Nicole PA [...] is protected by Article 27-F of the [facility] Public Health law. If you continue you may have access to information: Regarding HIV / AIDS; Provided by facilities licensed or operated by the [facility] Office of Mental Health; or Provided by the [facility] Office for People With Developmental Disabilities. If such information is present, then the following [facility] mandated warning applies: This information has been [...] law may result in a fine or half-way sentence or both. A general authorization for the release of medical or other information is NOT sufficient authorization for further disc losure. Allergies and Adverse Reactions Type Description Substance Reaction Status Data Source(s ) Seasonal Seasonal Seasonal nasal congestion, plugged ears Acti ve eCW1 ([facility]) Allergy to substance Allergy to substance Allergy to substance UMM ([facility]) Family History Family Member Name Family Member Gender Family Member Status Date o f Status Description Data Source(s) Unknown Male Problem MEDENT ([facility]) Unknown Male Problem MEDENT ([facility]) Unknown Male Problem MEDENT ([facility]) Unknown Male Problem MEDENT ([facility]) Encounters Encounter Providers Location Date Indications Data Source(s ) Unknown [address] [facility] [address] [address] 02/15/2020 12:00:00 AM EST eCW1 ([facility]) Unknown [address] [facility] [address] 02/05/2020 12:00:00 AM EST eCW1 ([facility]) [place] [address] [facility] [place] [address] 02/05/2020 12:00:00 AM EST eCW1 ([facility]) Unknown [address] [facility] [address] 01/15/2020 12:00:00 AM EST eCW1 ([facility]) Outpatient [address] [facility] [address] 01/01/2020 12:00:00 AM EST eCW1 ([facility]) Unknown [address] [facility] [address] 12/26/2019 12:00:00 AM EST eCW1 ([facility]) Josef Otero, GABRIELLAC: [address] [facility], [facility] [address], [place] [address], Ph. Attender: JOSEF QUIROZC [facility] Medical 12/13/2019 12:00:00 AM EDT UMM ([facility]) Unknown [address] [facility] [place] [address] 12/12/2019 12:00:00 AM EDT eCW1 ([facility]) [place] [address] [facility] [place] [address] 12/11/2019 12:00:00 AM EDT eCW1 ([facility]) [place] [address] [facility] [place] [address] 12/11/2019 12:00:00 AM EDT eCW1 ([facility]) [place] [address] [facility] [address] 12/04/2019 12:00:00 AM EDT eCW1 ([facility]) [place] [address] [facility] [place] [address] 11/21/2019 12:00:00 AM EDT eCW1 ([facility]) [place] [address] [facility] [place] [address] 11/07/2019 12:00:00 AM EDT eCW1 ([facility]) [place] [address] [facility] [place] [address] 11/07/2019 12:00:00 AM EDT eCW1 ([facility]) Outpatient Attender: Nicole CLEMENTS [facility] n 10/12/2019 02:45:00 PM EDT MEDENT ([facility]) [place] [address] [facility] [address] 09/05/2019 12:00:00 AM EDT eCW1 ([facility]) Outpatient Attender: Nicole CLEMENTS [facility] n 07/03/2019 02:30:00 PM EDT MEDENT ([facility]) [facility] [place] [address] [facility] [place] [address] 06/01/2019 12:00:00 AM EDT eCW1 ([facility]) [facility] [place] [address] [facility] [place] [address] 05/25/2019 12:00:00 AM EDT eCW1 ([facility]) [facility] [place] [address] [facility] [place] [address] 02/19/2019 12:00:00 AM EST eCW1 ([facility]) [facility] [place] [address] [facility] [place] [address] 01/08/2019 12:00:00 AM EST eCW1 ([facility]) Immunizations Vaccine Date Status Description Data Source(s) New in 2011. IIV4 12/13/2019 03:50:00 PM EDT completed 0.5 mL UMM ([facility]) Medications Medication Brand Name Start Date Product Form Dose Route Admi nistrative Instructions Pharmacy Instructions Status Indications Reaction Description Data Source(s) 100,000 unit/mL 12/12/2019 12:00:00 AM EDT suspension 200 TAKE 5ML BY MOUTH FOUR TIMES A DAY FOR 10 DAYS TAKE 5ML BY MOUTH FOUR TIMES A DAY FOR 10 DAYS SOLD: 12/12/2019 [facility] ([facility] Metronidazole 0.0075 MG/MG Vaginal Gel Metronidazole 0 .75 % Metronidazole 0.75 % 12/04/2019 12:00:00 AM EDT active Metronidazole 0.75 % eCW1 ([facility]) Metronidazole 0.0075 MG/MG Vaginal Gel Metronidazole 0 .75 % Metronidazole 0.75 % 12/04/2019 12:00:00 AM EDT active Metronidazole 0.75 % eCW1 ([facility]) 0.75 % 12/04/2019 12:00:00 AM EDT gel 70 INSERT 1 APPLICATORFUL VAGINALLY ONCE DAILY FOR 5 DAYS INSERT 1 APPLICATORFUL VAGINALLY ONCE DAILY FOR 5 DAYS SOLD: 12/04/2019 [facility] ([facility] Metronidazole 0.0075 MG/MG Vaginal Gel Metronidazole 0 .75 % Metronidazole 0.75 % 12/04/2019 12:00:00 AM EDT active Metronidazole 0.75 % eCW1 ([facility]) Metronidazole 0.0075 MG/MG Vaginal Gel Metronidazole 0 .75 % Metronidazole 0.75 % 12/04/2019 12:00:00 AM EDT active Metronidazole 0.75 % eCW1 ([facility]) Metronidazole 0.0075 MG/MG Vaginal Gel Metronidazole 0 .75 % Metronidazole 0.75 % 12/04/2019 12:00:00 AM EDT active Metronidazole 0.75 % eCW1 ([facility]) Fluconazole 150 MG Oral Tablet Fluconazole 150 MG 11/27/2019 12:00: 00 AM EDT 1.0 {tablet} active Fluconazole 150 MG eCW1 ([facility]) Fluconazole 150 MG Oral Tablet Fluconazole 150 MG 11/27/2019 12:00: 00 AM EDT 1.0 {tablet} active Fluconazole 150 MG eCW1 ([facility]) Fluconazole 150 MG Oral Tablet Fluconazole 150 MG 11/27/2019 12:00: 00 AM EDT 1.0 {tablet} active Fluconazole 150 MG eCW1 ([facility]) 150 mg 11/27/2019 12:00:00 AM EDT tablet [...] 1.0 {tablet} active Fluconazole 150 MG eCW1 ([facility]) Fluconazole 150 MG Oral Tablet Fluconazole 150 MG 11/27/2019 12:00: 00 AM EDT 1.0 {tablet} active Fluconazole 150 MG eCW1 ([facility]) Fluconazole 150 MG Oral Tablet Fluconazole 150 MG 11/27/2019 12:00: 00 AM EDT 1.0 {tablet} active Fluconazole 150 MG eCW1 ([facility]) Metronidazole 500 MG Oral Tablet Metronidazole 500 MG 2019 12:00:00 AM EDT 1.0 {tablet} active Metronidazo le 500 MG eCW1 ([facility]) Metronidazole 500 MG Oral Tablet Metronidazole 500 MG 2019 12:00:00 AM EDT 1.0 {tablet} active Metronidazo le 500 MG eCW1 ([facility]) Metronidazole 500 MG Oral Tablet Metronidazole 500 MG 2019 12:00:00 AM EDT 1.0 {tablet} active Metronidazo le 500 MG eCW1 ([facility]) Metronidazole 500 MG Oral Tablet Metronidazole 500 MG 2019 12:00:00 AM EDT 1.0 {tablet} active Metronidazo le 500 MG eCW1 ([facility]) Metronidazole 500 MG Oral Tablet Metronidazole 500 MG 2019 12:00:00 AM EDT 1.0 {tablet} active Metronidazo le 500 MG eCW1 ([facility]) Metronidazole 500 MG Oral Tablet Metronidazole 500 MG 2019 12:00:00 AM EDT 1.0 {tablet} active Metronidazo le 500 MG eCW1 ([facility]) Metronidazole 500 MG Oral Tablet Metronidazole 500 MG 2019 12:00:00 AM EDT 1.0 {tablet} active Metronidazo le 500 MG eCW1 ([facility]) Metronidazole 500 MG Oral Tablet METRONIDAZOLE 11/21/2019 12:0 0:00 AM EDT tablet 14 TAKE ONE TABLET BY MOUTH TWICE A DAY FOR 7 DAYS TAKE ONE TABLET BY MOUTH TWICE A DAY FOR 7 DAYS SOLD: 11/21/2019 [facility] Ergocalciferol 80657 UNT Oral Capsule Ergocalciferol 04/12/2019 12:00:00 AM EST ORAL active MEDENT ( [facility]) Insurance Providers Payer name Policy type / Coverage type Policy ID Covered constitution party ID Covered constitution party's relationship to cuello Policy Cuello Plan Information [facility] [id number] ANSI-Commercial [id number] ANSI-Commercial [id number] ANSI-Commercial [id number] ANSI-Commercial [id number] [employer] [id number] Self [id number] Commercial [id number] Self [id number] ANSI-Commercial [id number] ANSI-Commercial [id number] [facility] [id number] ANSI-Commercial [id number] ANSI-Commercial [id number] [employer] Commercial [id number] Self [id number] ANSI-Not a Secondary Insurance [id number] ANSI-Not a Secondary Insurance [id number] ANSI-Commercial [id number] [employer] [id number] SP [id number] [employer] Commercial [id number] Self [id number] [employer] U [id number] Self [id number] [employer] U [id number] Self [id number] [employer] U [id number] Self [id number] [employer] (pr) Commercial [id number] Self [id number] [employer] (pr) Commercial [id number] Self [id number] [employer] Commercial [id number] Self [id number] [employer] (pr) Commercial [id number] Self [id number] [employer] (pr) Commercial [id number] Self [id number] [employer] Commercial [id number] Self [id number] [employer] (pr) Commercial [id number] Self [id number] [employer] (pr) Commercial [id number] Self [id number] [employer] (pr) Commercial [id number] Self [id number] [employer] Commercial [id number] Self [id number] [employer] Commercial [id number] Self [id number] [employer] Commercial [id number] Self [id number] [employer] Commercial [id number] Self [id number] [employer] [id number] SP [id number] [employer] Commercial Self [id number] Problems, Conditions, and Diagnoses Code Display Name Description Problem Type Effective Dates Data Source(s) E78.1 [id number] High triglycerides Problem 09/05/2019 12:00: 00 AM EDT eCW1 ([facility]) Surgeries/Procedures Procedure Description Date Indications Data Source(s) Needle electromyography, each extremity, with related paraspinal areas, when performed, done with nerve conduction, amplitude and latency/velocity study; complete, five or more muscles studied, innervated by three or more nerves or four or more spinal levels (list separately in addition to the code for primary procedure). 07/17/2019 12:00:00 AM EDT MEDMARÍA ELENA T ([facility] ) Needle electromyography, each extremity, with related paraspinal areas, when performed, done with nerve conduction, amplitude and latency/velocity study; complete, five or more muscles studied, innervated by three or more nerves or four or more spinal levels (list separately in addition to the code for primary procedure). 07/17/2019 12:00:00 AM EDT MEDEN T ([facility] ) [address] Nerve conduction studies 13 or more studies NEW 201207/17/2019 12:00:00 AM EDT MEDDAVID ([facility] ) TeleMedicine Est. Pt. Level 3 06/01/2019 12:00:00 AM E DT eCW1 ([facility]) Results ID Date Data Source PAP REQUEST FOR SERVICE 11/24/2019 04:41:48 AM EDT eCW1 ([facility]) Name Value Range Interpretation Code Description Data Elenita rce(s) Supporting Document(s) PAP REQUEST FOR SERVICE eCW1 ( [facility]) ID Date Data Source [id number] 10/12/2019 03:29:00 PM EDT MEDENT ([facility], ) Name Value Range Interpretation Code Description Data Elenita rce(s) Supporting Document(s) Laboratory test finding (navigational concept) Laboratory test result MEDENT ([facility], ) A courtesy copy of this report has been sent to the patient, Calcidiol [Mass/volume] in Serum or Plasma 39.9 ng/mL 30.0-100.0 MEDENT ([facility], ) A courtesy copy of this report has been sent to the patient, ID Date Data Source [id number] 10/12/2019 03:29:00 PM EDT MEDENT ([facility], ) Name Value Range Interpretation Code Description Data Elenita rce(s) Supporting Document(s) Folate (Folic Acid), Serum Laboratory test result MEDENT ([facility], ) A courtesy copy of this report has been sent to the patient, Cobalamin (Vitamin B12) [Mass/volume] in Serum or Plasma 507 pg/mL 2 [id number] MEDENT ([facility], ) A courtesy copy of this report has been sent to the patient, Procedure Social History Code Duration Value Status Description Data Source(s ) Smoking 01/01/2020 12:00:00 AM EST Never Smoker completed Never S moker eCW1 ([facility]) Smoking 01/01/2020 12:00:00 AM EST Never Smoker completed Never S moker eCW1 ([facility]) Smoking 01/01/2020 12:00:00 AM EST Never Smoker completed Never S moker eCW1 ([facility]) Smoking 01/01/2020 12:00:00 AM EST Never Smoker completed Never S moker eCW1 ([facility]) Smoking 01/01/2020 12:00:00 AM EST Never Smoker completed Never S moker eCW1 ([facility]) Smoking 11/21/2019 12:00:00 AM EDT Never Smoker completed Never S moker eCW1 ([facility]) Smoking 11/21/2019 12:00:00 AM EDT Never Smoker completed Never S moker eCW1 ([facility]) Smoking 11/21/2019 12:00:00 AM EDT Never Smoker completed Never S moker eCW1 ([facility]) Smoking 11/21/2019 12:00:00 AM EDT Never Smoker completed Never S moker eCW1 ([facility]) Smoking 11/21/2019 12:00:00 AM EDT Never Smoker completed Never S moker eCW1 ([facility]) Smoking 11/21/2019 12:00:00 AM EDT Never Smoker completed Never S moker eCW1 ([facility]) Smoking 11/21/2019 12:00:00 AM EDT Never Smoker completed Never S moker eCW1 ([facility]) Smoking 09/05/2019 12:00:00 AM EDT Never Smoker completed Never S moker eCW1 ([facility]) Smoking 09/05/2019 12:00:00 AM EDT Never Smoker completed Never S moker eCW1 ([facility]) Vital Signs ID Date Data Source UNK Name Value Range Interpretation Code Description Data Source(s) Diastolic blood pressure 92 mm[Hg] 92 mm[Hg] eCW1 ([facility]) Systolic blood pressure 137 mm[Hg] 137 mm[Hg] e CW1 ([facility]) Body temperature 96.8 [degF] 96.8 [degF] eCW1 ( [facility]) Respiratory rate 17 /min 17 /min eCW1 ([facility]) Heart rate 107 /min 107 /min eCW1 ([facility]) Body mass index (BMI) [Ratio] 32.75 kg/m2 32.75 kg/m2 W1 ([facility]) Body height 62.5 [in_i] 62.5 [in_i] W1 ([facility]) Body weight 182 [lb_av] 182 [lb_av] eCW1 ([facility]) Diastolic blood pressure 84 mm[Hg] 84 mm[Hg] eCW1 ([facility]) Systolic blood pressure 124 mm[Hg] 124 mm[Hg] e CW1 ([facility]) Body mass index (BMI) [Ratio] 32.93 kg/m2 32.93 kg/m2 W1 ([facility]) Body height 62.5 [in_i] 62.5 [in_i] eCW1 ([facility]) Body weight 83.01 kg 83.01 kg [facility] Body weight 183 [lb_av] 183 [lb_av] eCW1 ([facility]) Respiratory rate 16 /min 16 /min MEDENT ( [facility] ) Heart rate 68 /min 68 /min MEDENT ([facility] ) Diastolic blood pressure 76 mm[Hg] 76 mm[Hg] MEDENT ([facility] ) Systolic blood pressure 118 mm[Hg] 118 mm[Hg] M EDENT ([facility] ) Diastolic blood pressure 88 mm[Hg] 88 mm[Hg] eCW1 ([facility]) Systolic blood pressure 132 mm[Hg] 132 mm[Hg] e CW1 ([facility]) Body temperature 97.7 [degF] 97.7 [degF] eCW1 ( [facility]) Respiratory rate 16 /min 16 /min eCW1 ([facility]) Heart rate 95 /min 95 /min eCW1 ([facility]) Body mass index (BMI) [Ratio] 32.93 kg/m2 32.93 kg/m2 eCW1 ([facility]) Body height 62.5 [in_i] 62.5 [in_i] eCW1 ([facility]) Body weight 183 [lb_av] 183 [lb_av] eCW1 ([facility]) Patient Treatment Plan of Care Planned Activity Planned Date Details Description Data Source (s) Metronidazole 0.0075 MG/MG Vaginal Gel 12/04/2019 12:00:00 AM EDT eCW1 ([facility]) Metronidazole 0.0075 MG/MG Vaginal Gel 12/04/2019 12:00:00 AM EDT eCW1 ([facility]) Metronidazole 0.0075 MG/MG Vaginal Gel 12/04/2019 12:00:00 AM EDT eCW1 ([facility]) Metronidazole 0.0075 MG/MG Vaginal Gel 12/04/2019 12:00:00 AM EDT eCW1 ([facility]) Metronidazole 0.0075 MG/MG Vaginal Gel 12/04/2019 12:00:00 AM EDT eCW1 ([facility]) Fluconazole 150 MG Oral Tablet 11/27/2019 12:00:00 AM EDT eCW1 ([facility]) Fluconazole 150 MG Oral Tablet 11/27/2019 12:00:00 AM EDT eCW1 ([facility]) Fluconazole 150 MG Oral Tablet 11/27/2019 12:00:00 AM EDT eCW1 ([facility]) Fluconazole 150 MG Oral Tablet 11/27/2019 12:00:00 AM EDT eCW1 ([facility]) Fluconazole 150 MG Oral Tablet 11/27/2019 12:00:00 AM EDT eCW1 ([facility]) Fluconazole 150 MG Oral Tablet 11/27/2019 12:00:00 AM EDT eCW1 ([facility]) Metronidazole 500 MG Oral Tablet 11/21/2019 12:00:00 AM EDT eCW1 ([facility]) Metronidazole 500 MG Oral Tablet 11/21/2019 12:00:00 AM EDT eCW1 ([facility]) Metronidazole 500 MG Oral Tablet 11/21/2019 12:00:00 AM EDT eCW1 ([facility]) Metronidazole 500 MG Oral Tablet 11/21/2019 12:00:00 AM EDT eCW1 ([facility]) Metronidazole 500 MG Oral Tablet 11/21/2019 12:00:00 AM EDT eCW1 ([facility]) Metronidazole 500 MG Oral Tablet 11/21/2019 12:00:00 AM EDT eCW1 ([facility]) Metronidazole 500 MG Oral Tablet 11/21/2019 12:00:00 AM EDT eCW1 ([facility])
--- NOTE | 2020-02-26 20:50 | REP ---
INDICATION: CHEST PAIN COMPARISON: 04/14/2011 TECHNIQUE: Portable AP view of the chest FINDINGS: The mediastinum and cardiac silhouette are stable and within normal limits for portable technique. The lung angel are clear without acute consolidation, effusion, or pneumothorax. Skeletal structures are intact. IMPRESSION: No acute cardiopulmonary process appreciated. <Electronically signed by Daniel Garcia > 02/26/20 [id number]
--- NOTE | 2020-02-26 21:35 | REPVR ---
PROCEDURE INFORMATION: Exam: CT Abdomen And Pelvis With Contrast Exam date and time: 02/26/2020 8:36 PM Age: 39 years old Clinical indication: Abdominal pain; Generalized; Additional info: Chest pain TECHNIQUE: Imaging protocol: Computed tomography of the abdomen and pelvis with intravenous contrast. Radiation optimization: All CT scans at this facility use at least one of these dose optimization techniques: automated exposure control; mA and/or kV adjustment per patient size (includes targeted exams where dose is matched to clinical indication); or iterative reconstruction. Contrast material: ISOVUE 370; Contrast volume: 100 ml; Contrast route: INTRAVENOUS (IV); COMPARISON: US ABDOMEN LIMITED 07/08/2015 8:10 AM FINDINGS: Liver: There is hypodense fatty infiltration of the liver. The liver measures 21.8 cm in the craniocaudad dimension, consistent with hepatomegaly. Gallbladder and bile ducts: No calcified stones. No ductal dilation. Pancreas: Mild atrophy of the pancreas identified. Spleen: There is heterogeneous density of the spleen can, contributed by the phase of injection. No significant splenomegaly. Adrenal glands: No mass. Kidneys and ureters: Unremarkable as visualized. No hydronephrosis. Stomach and bowel: Colonic diverticula are identified, without acute inflammatory stranding of the adjacent mesentery. There is gaseous distention of the rectum. Moderate fecal material within the colon. No visualized bowel distention to suggest obstruction. Evaluation of bowel is limited by the absence of oral contrast. Appendix: No evidence of appendicitis. Intraperitoneal space: No free air. Vasculature: No abdominal aortic aneurysm. Lymph nodes: No enlarged lymph nodes. Urinary bladder: Unremarkable as visualized. Reproductive: Within the left ovary, there is a peripherally isodense probable cyst measuring 1.8 cm in diameter. Bones/joints: Mild degenerative changes are identified involving the spine. Fracture and displacement at the sacrococcygeal junction. Mild adjacent soft tissue swelling and minimal presacral swelling are identified. Soft tissues: Minimal herniation of fat into the umbilicus. Other findings: For discussion of findings within the chest, refer to the chest CT report from the same day. IMPRESSION: 1. Fracture and displacement at the sacrococcygeal junction. Mild adjacent soft tissue swelling and minimal presacral swelling are identified. Clinical correlation recommended. 2. There is hypodense fatty infiltration of the liver. Hepatomegaly. 3. Diverticulosis. 4. Within the left ovary, there is a probable cyst measuring 1.8 cm in diameter. This can be further evaluated with ultrasound 5. Additional findings described above. Electronically signed by: Prasad Patricia On 02/26/2020 21:36:23 PM
--- NOTE | 2020-02-26 21:49 | REPVR ---
PROCEDURE INFORMATION: Exam: CT Angiography Chest With Contrast Exam date and time: 02/26/2020 8:36 PM Age: 39 years old Clinical indication: Chest pain TECHNIQUE: Imaging protocol: Computed tomographic angiography of the chest with intravenous contrast. 3D rendering (Not supervised by radiologist): MIP and/or 3D reconstructed images were created by the technologist. Radiation optimization: All CT scans at this facility use at least one of these dose optimization techniques: automated exposure control; mA and/or kV adjustment per patient size (includes targeted exams where dose is matched to clinical indication); or iterative reconstruction. Contrast material: ISOVUE 370; Contrast volume: 100 ml; Contrast route: INTRAVENOUS (IV); COMPARISON: CR PORTABLE CHEST X-RAY 02/26/2020 7:30 PM FINDINGS: Pulmonary arteries: Evaluation of the pulmonary arteries is limited by suboptimal enhancement. No central pulmonary embolism is visualized involving the pulmonary trunk and main pulmonary arteries. Evaluation of the peripheral pulmonary arteries for pulmonary embolism is suboptimal. Aorta: Artifact limits evaluation of the ascending aorta. No aneurysm or dissection of the remaining thoracic aorta. Lungs: Minimal atelectatic change visualized within the right lower lobe of the lung. No lung mass or dominant lung nodule identified. Pleural space: No pneumothorax. No pleural effusion. Heart: No significant cardiomegaly. No pericardial effusion. Lymph nodes: Nonspecific axillary lymph nodes are seen bilaterally. No significant mediastinal or hilar lymphadenopathy. Bones/joints: Hypertrophic degenerative changes are noted involving the spine. No visualized acute fracture. Soft tissues: Unremarkable. Other findings: For discussion of findings involving the abdomen and pelvis, refer to the abdomen/pelvis CT report from the same day. IMPRESSION: 1. Evaluation of the pulmonary arteries is limited by suboptimal enhancement. No central pulmonary embolism is visualized involving the pulmonary trunk and main pulmonary arteries. If further evaluation is clinically indicated, a V/Q scan is suggested. 2. Minimal atelectatic change visualized within the right lower lobe of the lung. 3. Additional findings described above. Electronically signed by: Prasad Patricia On 02/26/2020 21:50:10 PM
[2020-02-26] MEDS ORDERED: NS 1,000 ML IV SCH (21:57)
[2020-02-27 01:23] LABS: CK-MB VALUE MASS < 1.0 NG/ML (<3.6); CPK CREATINE PHOSPHOKINASE 29 U/L (26-192); MB/CK RELATIVE INDEX 3.45 (< OR =4); TROPONIN I < 0.02 NG/ML (< 0.10)
[2020-02-27 02:00] VITALS: BP 159/101
--- NOTE | 2020-02-27 09:01 | ECGEPIP ---
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
--- NOTE | 2020-02-27 09:05 | ECGEPIP ---
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
== END 2020-02-27 02:15 | disposition home or self-care (01) ==
LOC: M ED 17:15
DX: R07.9 Chest pain, unspecified (principal); R00.0 Tachycardia, unspecified; S32.2XXA Fracture of coccyx, initial encounter for closed fracture; X58.XXXA Exposure to other specified factors, initial encounter; Y92.9 Unspecified place or not applicable; Y93.9 Activity, unspecified; Y99.9 Unspecified external cause status; K57.30 Diverticulosis of large intestine without perforation or abscess without bleeding; K76.0 Fatty (change of) liver, not elsewhere classified; E11.9 Type 2 diabetes mellitus without complications; I10 Essential (primary) hypertension; E78.5 Hyperlipidemia, unspecified; Z79.899 Other long term (current) drug therapy
CPT/HCPCS: 36415; 71045; 71275; 74177; 80047; 80048; 80076; 82550; 82553; 83690; 84132; 84443; 84484; 84703; 85025; 93005; 93041; 94760; 99285; Q9967

== ENCOUNTER → 2020-06-26 | Outpatient (CLI) | payer OTHER ==
[~2020-06-26] MED LIST: ATEN25TA PO; HYDR-3490 PO; JARD1TAB PO; METF500T13 PO; NORT50CA PO; PRAV20TA2 PO; VITA50005 PO
[2020-06-26 09:44] LABS: BLOOD UREA NITROGEN 15 MG/DL (7-18); CALCIUM LEVEL 9.5 MG/DL (8.5-10.1); CARBON DIOXIDE LEVEL 26 MEQ/L (21-32); CHLORIDE LEVEL 101 MEQ/L (98-107); CREATININE FOR GFR 0.71 MG/DL (0.55-1.30); GLOMERULAR FILTRATION RATE > 60.0 (>58); GLUCOSE, FASTING 159 MG/DL (70-100); SODIUM LEVEL 134 MEQ/L (136-145)
[2020-06-26 09:45] LABS: HEMOGLOBIN A1c 6.2 %
[2020-06-26 09:57] LABS: MALB URINE SIEMENS 21.5 MG/L; MAU/CREAT RATIO 14.4 MCG/MG (0.0-30.0)
== END ==
LOC: M LAB 08:38
PROVIDERS: ATTEND Family Medicine
DX: E11.9 Type 2 diabetes mellitus without complications (principal)

== ENCOUNTER → 2020-11-21 | Outpatient (CLI) | payer OTHER ==
[~2020-11-21] MED LIST changes: +ERGO500029 PO; -VITA50005 PO
--- NOTE | 2020-11-21 10:05 | REPMRS ---
Patient History The patient states she had a clinical breast exam in 2020. Patient is nulliparous. Family history of unknown cancer in paternal aunt, unknown cancer in paternal uncle, unknown cancer in maternal grandfather. Baseline No breast complaints today Patient signed the MRS sheet 1st covid vaccine 04/30/20-left arm-Moderna 2nd covid vaccine 05/28/20-left arm Patient Identification Verified Patient denied No [employer] Screen Mammo: November 21, 2020 - Exam #: [id number] Bilateral CC and MLO view(s) were taken. Technologist: Tiffany Kang, Technologist No prior studies available for comparison. FINDINGS: The breast tissue is heterogeneously dense. This may lower the sensitivity of mammography. The Volpara volumetric breast density category is: C. There is no evidence of dominant mass, architectural distortion, or grouped microcalcification typical of malignancy. 3-D tomosynthesis shows no additional findings. Assessment: BI-RADS/ACR category 1 mammogram. Negative Mammogram. Recommendation Routine screening mammogram of both breasts in 1 year (for women over age 40). This patient's [facility] Lifetime Breast Cancer RIsk is estimated at 13.8 %. This mammogram was interpreted with the aid of an FDA-approved computer-aided dectection system. Electronically Signed By: Daniel Moya MD 11/21/20 8019
== END ==
LOC: M WHC 08:41
PROVIDERS: ATTEND Nurse Practitioner Women's Health
DX: Z12.31 Encounter for screening mammogram for malignant neoplasm of breast (principal)

== ENCOUNTER → 2020-12-26 | Outpatient (CLI) | payer OTHER ==
[2020-12-26 13:16] LABS: FOLATE > 24.0 NG/ML; TOTAL 25(OH) VITAMIN D 58.8 NG/ML (30.0-100.0); VITAMIN B12 LEVEL 412 PG/ML
== END ==
LOC: M PLALAB 08:01
PROVIDERS: ATTEND Physician Assistant Medical
DX: D51.9 Vitamin B12 deficiency anemia, unspecified (principal); E55.9 Vitamin D deficiency, unspecified

== ENCOUNTER → 2020-12-26 | Outpatient (CLI) | payer OTHER ==
[2020-12-26 11:20] LABS: BLOOD UREA NITROGEN 12 MG/DL (7-18); CALCIUM LEVEL 9.2 MG/DL (8.5-10.1); CARBON DIOXIDE LEVEL 29 MEQ/L (21-32); CHLORIDE LEVEL 100 MEQ/L (98-107); CHOLESTEROL LEVEL 202 MG/DL (<200); CREATININE FOR GFR 0.67 MG/DL (0.55-1.30); GLOMERULAR FILTRATION RATE > 60.0 (>58); GLUCOSE, FASTING 155 MG/DL (70-100); POTASSIUM SERUM 4.4 MEQ/L (3.5-5.1); SODIUM LEVEL 136 MEQ/L (136-145); TRIGLYCERIDES LEVEL 571 MG/DL (<150)
[2020-12-26 11:21] LABS: CHOLESTEROL RISK RATIO 5.941 (<5); HDL CHOLESTEROL 34 MG/DL (>40); NON-HDL-C 168 MG/DL
[2020-12-26 13:00] LABS: HEMOGLOBIN A1c 6.8 %
== END ==
LOC: M PLALAB 07:59
PROVIDERS: ATTEND Family Medicine
DX: E11.9 Type 2 diabetes mellitus without complications (principal); E78.5 Hyperlipidemia, unspecified

== ENCOUNTER → 2021-01-20 | Outpatient (CLI) | payer OTHER ==
[2021-01-20 18:07] LABS: BASO # 0.1 10^3/uL (0.0-0.2); EOS # 0.3 10^3/uL (0.0-0.5); EOS % 3.4 % (0.0-3.0); HEMATOCRIT 46.3 % (36.0-47.0); HEMOGLOBIN 15.5 g/dl (12.0-15.5); LYMPH # 4.3 10^3/uL (1.5-5.0); LYMPH % 49.4 % (24.0-44.0); MEAN CORPUSCULAR HEMOGLOBIN 30.5 pg (27.0-33.0); MEAN CORPUSCULAR HGB CONC 33.5 g/dl (32.0-36.5); MONO # 0.5 10^3/uL (0.0-0.8); MONO % 5.7 % (2.0-8.0); NEUTROPHILS # 3.5 10^3/uL (1.5-8.5); NEUTROPHILS % 40.4 % (36.0-66.0); PLATELET COUNT, AUTOMATED 278 10^3/uL (150-450); RED BLOOD COUNT 5.09 10^6/uL (4.00-5.40); WHITE BLOOD COUNT 8.8 10^3/uL (4.0-10.0)
== END ==
LOC: M PLALAB 14:59
PROVIDERS: ATTEND Family Medicine
DX: R53.83 Other fatigue (principal)

== ENCOUNTER → 2021-05-28 | Outpatient (CLI) | payer OTHER ==
[2021-05-28 10:51] LABS: CHOLESTEROL RISK RATIO 4.342 (<5)
== END ==
LOC: M PLALAB 07:52
PROVIDERS: ATTEND Family Medicine
DX: E78.5 Hyperlipidemia, unspecified (principal)

== ENCOUNTER → 2021-07-28 | Outpatient (CLI) | payer OTHER ==
[2021-07-28 11:00] LABS: HEMATOCRIT 45.6 % (36.0-47.0); HEMOGLOBIN 15.2 g/dl (12.0-15.5); MEAN CORPUSCULAR HEMOGLOBIN 29.9 pg (27.0-33.0); MEAN CORPUSCULAR HGB CONC 33.3 g/dl (32.0-36.5); MEAN CORPUSCULAR VOLUME 89.6 fl (80.0-96.0); PLATELET COUNT, AUTOMATED 246 10^3/uL (150-450); RED BLOOD COUNT 5.09 10^6/uL (4.00-5.40); WHITE BLOOD COUNT 8.2 10^3/uL (4.0-10.0)
[2021-07-28 11:29] LABS: ALT/SGPT 56 U/L (12-78); BILIRUBIN,TOTAL 0.8 MG/DL (0.2-1.0); BLOOD UREA NITROGEN 10 MG/DL (7-18); CALCIUM LEVEL 10.1 MG/DL (8.5-10.1); CARBON DIOXIDE LEVEL 29 MEQ/L (21-32); CHLORIDE LEVEL 105 MEQ/L (98-107); CREATININE FOR GFR 0.66 MG/DL (0.55-1.30); GLOMERULAR FILTRATION RATE > 60.0 (>58); GLUCOSE, FASTING 189 MG/DL (70-100); NT-PRO BNP 17 PG/ML (<125); POTASSIUM SERUM 4.1 MEQ/L (3.5-5.1); SODIUM LEVEL 140 MEQ/L (136-145); TOTAL PROTEIN 7.2 GM/DL (6.4-8.2)
== END ==
LOC: M PLALAB 09:54
PROVIDERS: ATTEND Internal Medicine Cardiovascular Disease
DX: I10 Essential (primary) hypertension (principal); R06.02 Shortness of breath; R60.0 Localized edema

== ENCOUNTER → 2021-08-07 | Outpatient (CLI) | payer OTHER ==
[2021-08-07 10:36] LABS: BASO # 0.1 10^3/uL (0.0-0.2); EOS # 0.3 10^3/uL (0.0-0.5); EOS % 4.3 % (0.0-3.0); HEMATOCRIT 44.2 % (36.0-47.0); HEMOGLOBIN 14.5 g/dl (12.0-15.5); LYMPH # 3.6 10^3/uL (1.5-5.0); LYMPH % 46.1 % (24.0-44.0); MEAN CORPUSCULAR HEMOGLOBIN 29.5 pg (27.0-33.0); MEAN CORPUSCULAR HGB CONC 32.8 g/dl (32.0-36.5); MONO # 0.4 10^3/uL (0.0-0.8); MONO % 5.4 % (2.0-8.0); NEUTROPHILS # 3.3 10^3/uL (1.5-8.5); NEUTROPHILS % 43.1 % (36.0-66.0); PLATELET COUNT, AUTOMATED 263 10^3/uL (150-450); RED BLOOD COUNT 4.91 10^6/uL (4.00-5.40); WHITE BLOOD COUNT 7.8 10^3/uL (4.0-10.0)
[2021-08-07 11:07] LABS: ALBUMIN 4.2 GM/DL (3.2-5.2); ALT/SGPT 52 U/L (12-78); BILIRUBIN,TOTAL 1.2 MG/DL (0.2-1.0); BLOOD UREA NITROGEN 12 MG/DL (7-18); CALCIUM LEVEL 9.9 MG/DL (8.5-10.1); CARBON DIOXIDE LEVEL 29 MEQ/L (21-32); CHLORIDE LEVEL 99 MEQ/L (98-107); CREATININE FOR GFR 0.69 MG/DL (0.55-1.30); GLOMERULAR FILTRATION RATE > 60.0 (>58); GLUCOSE, FASTING 264 MG/DL (70-100); POTASSIUM SERUM 3.7 MEQ/L (3.5-5.1); SODIUM LEVEL 137 MEQ/L (136-145)
[2021-08-07 21:38] LABS: TOTAL 25(OH) VITAMIN D 55.7 NG/ML (30.0-100.0)
[2021-08-07 21:39] LABS: FOLATE > 24.0 NG/ML; VITAMIN B12 LEVEL 288 PG/ML
== END ==
LOC: M PLALAB 07:39
PROVIDERS: ATTEND Psychiatry & Neurology Neurology
DX: R51.9 Headache, unspecified (principal)

== ENCOUNTER → 2021-09-04 | Outpatient (CLI) | payer OTHER | LOC: M SLEEP HO 13:35 | PROVIDERS: ATTEND Internal Medicine Cardiovascular Disease | DX: J98.4 Other disorders of lung (principal) ==

== ENCOUNTER → 2021-12-02 | Outpatient (CLI) | payer OTHER ==
[2021-12-02 12:11] LABS: BLOOD UREA NITROGEN 12 MG/DL (7-18); CALCIUM LEVEL 9.4 MG/DL (8.5-10.1); CARBON DIOXIDE LEVEL 30 MEQ/L (21-32); CHLORIDE LEVEL 99 MEQ/L (98-107); CREATININE FOR GFR 0.66 MG/DL (0.55-1.30); GLOMERULAR FILTRATION RATE > 60.0 (>58); GLUCOSE, FASTING 180 MG/DL (70-100); POTASSIUM SERUM 3.7 MEQ/L (3.5-5.1); SODIUM LEVEL 136 MEQ/L (136-145)
[2021-12-02 12:28] LABS: MALB URINE SIEMENS 10.7 MG/L; MAU/CREAT RATIO 8.6 MCG/MG (0.0-30.0)
[2021-12-02 13:00] LABS: HEMOGLOBIN A1c 7.3 %
== END ==
LOC: M PLALAB 07:55
PROVIDERS: ATTEND Family Medicine
DX: E11.9 Type 2 diabetes mellitus without complications (principal)

== ENCOUNTER → 2022-01-14 | Outpatient (CLI) | payer OTHER | LOC: M SLEEP 20:00 | PROVIDERS: ATTEND Physician Assistant | DX: G47.33 Obstructive sleep apnea (adult) (pediatric) (principal) ==

== ENCOUNTER → 2022-01-29 | Outpatient (CLI) | payer OTHER | LOC: M WHC 07:39 | PROVIDERS: ATTEND Nurse Practitioner Family | DX: R92.2 Inconclusive mammogram (principal) ==

== ENCOUNTER → 2022-01-29 | Outpatient (REF) | payer OTHER | LOC: M PLALAB 11:29 | PROVIDERS: ATTEND Nurse Practitioner Family | DX: Z12.4 Encounter for screening for malignant neoplasm of cervix (principal) ==

== ENCOUNTER → 2022-03-12 | Outpatient (CLI) | payer OTHER | LOC: M WHC 07:28 | PROVIDERS: ATTEND Nurse Practitioner Family | DX: Z12.31 Encounter for screening mammogram for malignant neoplasm of breast (principal) | CPT/HCPCS: 77065; G0279 ==

== ENCOUNTER → 2022-03-18 | Outpatient (CLI) | payer OTHER ==
[2022-03-18 10:21] LABS: BASO # 0.1 10^3/uL (0.0-0.2); BASO % 1.2 % (0.0-1.0); EOS # 0.4 10^3/uL (0.0-0.5); EOS % 4.9 % (0.0-3.0); HEMATOCRIT 44.4 % (36.0-47.0); HEMOGLOBIN 14.8 g/dl (12.0-15.5); LYMPH # 3.1 10^3/uL (1.5-5.0); LYMPH % 42.3 % (24.0-44.0); MEAN CORPUSCULAR HEMOGLOBIN 30.5 pg (27.0-33.0); MEAN CORPUSCULAR HGB CONC 33.3 g/dl (32.0-36.5); MEAN CORPUSCULAR VOLUME 91.5 fl (80.0-96.0); MONO # 0.4 10^3/uL (0.0-0.8); NEUTROPHILS # 3.3 10^3/uL (1.5-8.5); NEUTROPHILS % 45.3 % (36.0-66.0); PLATELET COUNT, AUTOMATED 268 10^3/uL (150-450); RED BLOOD COUNT 4.85 10^6/uL (4.00-5.40); WHITE BLOOD COUNT 7.3 10^3/uL (4.0-10.0)
[2022-03-18 10:56] LABS: FOLLICLE STIMULATING HORMONE 7.9 mIU/ML; THYROID STIMULATING HORMONE 2.403 uIU/ML (0.55-4.78)
[2022-03-18 10:58] LABS: FREE T4 1.09 NG/DL (0.89-1.76)
[2022-03-18 11:30] LABS: RHEUMATOID FACTOR QUANT 5.5 IU/ML (<14)
[2022-03-19 15:08] LABS: ANTINUCLEAR ANTIBODIES DIRECT Negative (Negative); DEHYDROEPIANDROSTERONE SULFATE 30.8 ug/dL (57.3-279.2); TESTOSTERONE FREE (DIRECT) 0.6 pg/mL (0.0-4.2); TESTOSTERONE TOTAL FOR T&D < 3.0 ng/dL (4-50)
== END ==
LOC: M PLALAB 07:33
PROVIDERS: ATTEND Nurse Practitioner Family
DX: R53.83 Other fatigue (principal); L65.8 Other specified nonscarring hair loss

== ENCOUNTER → 2022-04-01 | Outpatient (REF) | payer OTHER | LOC: M PLALAB 11:08 | PROVIDERS: ATTEND Nurse Practitioner Family | DX: Z53.9 Procedure and treatment not carried out, unspecified reason (principal) ==

== ENCOUNTER → 2022-04-07 | Outpatient (CLI) | payer OTHER ==
[2022-04-07 10:58] LABS: BLOOD UREA NITROGEN 13 MG/DL (9-23); CARBON DIOXIDE LEVEL 32 MMOL/L (20-31); CHLORIDE LEVEL 99 MMOL/L (98-107); CREATININE FOR GFR 0.68 MG/DL (0.55-1.30); GLOMERULAR FILTRATION RATE > 60.0 (>58); GLUCOSE, FASTING 220 MG/DL (60-100); POTASSIUM SERUM 3.6 MMOL/L (3.5-5.1); SODIUM LEVEL 138 MMOL/L (136-145)
[2022-04-07 11:09] LABS: HEMOGLOBIN A1c 7.8 % (4.0-6.0)
== END ==
LOC: M PLALAB 07:31
PROVIDERS: ATTEND Family Medicine
DX: E11.9 Type 2 diabetes mellitus without complications (principal)

== ENCOUNTER → 2022-09-15 | Outpatient (CLI) | payer OTHER ==
[2022-09-15 18:08] LABS: BASO # 0.1 10^3/uL (0.0-0.2); BASO % 1.1 % (0.0-1.0); EOS # 0.4 10^3/uL (0.0-0.5); EOS % 3.9 % (0.0-3.0); HEMATOCRIT 44.6 % (36.0-47.0); HEMOGLOBIN 14.9 g/dl (12.0-15.5); LYMPH # 3.8 10^3/uL (1.5-5.0); LYMPH % 42.8 % (24.0-44.0); MEAN CORPUSCULAR HEMOGLOBIN 30.2 pg (27.0-33.0); MEAN CORPUSCULAR HGB CONC 33.4 g/dl (32.0-36.5); MEAN CORPUSCULAR VOLUME 90.5 fl (80.0-96.0); MONO # 0.6 10^3/uL (0.0-0.8); PLATELET COUNT, AUTOMATED 267 10^3/uL (150-450); RED BLOOD COUNT 4.93 10^6/uL (4.00-5.40)
[2022-09-15 18:30] LABS: ALBUMIN 4.5 G/DL (3.2-5.2); ALKALINE PHOSPHATASE 92 U/L (46-116); ALT/SGPT 45 U/L (7.0-40); AST/SGOT 19 U/L (<34); BILIRUBIN,TOTAL 1.6 MG/DL (0.3-1.2); BLOOD UREA NITROGEN 14 MG/DL (9-23); CALCIUM LEVEL 9.7 MG/DL (8.5-10.1); CARBON DIOXIDE LEVEL 29 MMOL/L (20-31); CHLORIDE LEVEL 93 MMOL/L (98-107); CREATININE FOR GFR 0.51 MG/DL (0.55-1.30); GLOMERULAR FILTRATION RATE > 60.0 (>58); GLUCOSE, FASTING 227 MG/DL (60-100); POTASSIUM SERUM 3.6 MMOL/L (3.5-5.1); SODIUM LEVEL 133 MMOL/L (136-145); TOTAL PROTEIN 7.1 G/DL (5.7-8.2)
[2022-09-15 18:34] LABS: FOLATE > 24.0 NG/ML (>5.4); VITAMIN B12 LEVEL 1964 PG/ML (211-911)
== END ==
LOC: M PLALAB 16:11
PROVIDERS: ATTEND Psychiatry & Neurology Neurology
DX: R51.9 Headache, unspecified (principal); E55.9 Vitamin D deficiency, unspecified; E53.8 Deficiency of other specified B group vitamins

== ENCOUNTER → 2022-10-14 | Outpatient (CLI) | payer OTHER ==
[2022-10-14 11:29] LABS: HEMOGLOBIN A1c 7.5 % (4.0-6.0)
[2022-10-14 11:35] LABS: CREATININE, URINE 71.7 MG/DL
[2022-10-14 11:36] LABS: MAU/CREAT RATIO 4.1 MCG/MG (0.0-30.0)
[2022-10-14 13:27] LABS: BLOOD UREA NITROGEN 11 MG/DL (9-23); CALCIUM LEVEL 8.8 MG/DL (8.5-10.1); CARBON DIOXIDE LEVEL 28 MMOL/L (20-31); CHLORIDE LEVEL 101 MMOL/L (98-107); GLOMERULAR FILTRATION RATE > 60.0 (>58); GLUCOSE, FASTING 184 MG/DL (60-100); POTASSIUM SERUM 3.9 MMOL/L (3.5-5.1); SODIUM LEVEL 138 MMOL/L (136-145)
== END ==
LOC: M PLALAB 07:38
PROVIDERS: ATTEND Family Medicine
DX: E11.9 Type 2 diabetes mellitus without complications (principal)

== ENCOUNTER → 2022-11-23 | Outpatient (CLI) | payer OTHER ==
[~2022-11-23] MED LIST changes: +GASTROGRAFIN SOLUTION 30ML As Ordered ONE; +ISOVUE-370 76% 100ML VIAL As Ordered ONE
== END ==
LOC: M RAD 12:22
PROVIDERS: ATTEND Family Medicine
DX: R10.9 Unspecified abdominal pain (principal); K76.0 Fatty (change of) liver, not elsewhere classified
CPT/HCPCS: 74177; Q9963; Q9967

== ENCOUNTER → 2022-12-11 | Outpatient (CLI) | payer OTHER ==
[~2022-12-11] MED LIST changes: -GASTROGRAFIN SOLUTION 30ML As Ordered ONE; -ISOVUE-370 76% 100ML VIAL As Ordered ONE
== END ==
LOC: M WHC 08:46
PROVIDERS: ATTEND Family Medicine
DX: D25.9 Leiomyoma of uterus, unspecified (principal)

== ENCOUNTER → 2023-02-01 | Outpatient (CLI) | payer OTHER | LOC: M WHC 12:55 | PROVIDERS: ATTEND Family Medicine | DX: R93.89 Abnormal findings on diagnostic imaging of other specified body structures (principal); D25.9 Leiomyoma of uterus, unspecified ==

== ENCOUNTER → 2023-02-04 | Outpatient (CLI) | payer OTHER | LOC: M WHC 14:36 | PROVIDERS: ATTEND Nurse Practitioner Family | DX: Z12.31 Encounter for screening mammogram for malignant neoplasm of breast (principal) ==

== ENCOUNTER → 2023-02-12 | Outpatient (CLI) | payer OTHER ==
[2023-02-12 13:54] LABS: CHOLESTEROL RISK RATIO 4.1 (<5); HDL CHOLESTEROL 40.4 MG/DL (>40); LDL CHOLESTEROL 47.8 MG/DL (<100); NON-HDL-C 125.6 MG/DL
== END ==
LOC: M PLALAB 08:41
PROVIDERS: ATTEND Physician Assistant
DX: E78.2 Mixed hyperlipidemia (principal)

== ENCOUNTER → 2023-04-08 | Outpatient (CLI) | payer OTHER ==
[2023-04-08 10:50] LABS: HEMOGLOBIN A1c 8.2 % (4.0-6.0)
[2023-04-08 11:44] LABS: BLOOD UREA NITROGEN 12 MG/DL (9-23); CALCIUM LEVEL 9.2 MG/DL (8.5-10.1); CARBON DIOXIDE LEVEL 27 MMOL/L (20-31); CHLORIDE LEVEL 99 MMOL/L (98-107); CREATININE FOR GFR 0.46 MG/DL (0.55-1.30); GLOMERULAR FILTRATION RATE > 60.0 (>58); GLUCOSE, FASTING 198 MG/DL (60-100); POTASSIUM SERUM 4.1 MMOL/L (3.5-5.1); SODIUM LEVEL 135 MMOL/L (136-145)
== END ==
LOC: M PLALAB 07:56
PROVIDERS: ATTEND Family Medicine
DX: E11.9 Type 2 diabetes mellitus without complications (principal)

== ENCOUNTER → 2023-08-03 | Outpatient (CLI) | payer OTHER ==
[2023-08-03 13:42] LABS: ALBUMIN 4.5 G/DL (3.2-5.2); ALKALINE PHOSPHATASE 79 U/L (46-116); ALT/SGPT 37 U/L (7.0-40); AST/SGOT 18 U/L (<34); BILIRUBIN,TOTAL 1.8 MG/DL (0.3-1.2); BLOOD UREA NITROGEN 14 MG/DL (9-23); CALCIUM LEVEL 9.9 MG/DL (8.5-10.1); CARBON DIOXIDE LEVEL 27 MMOL/L (20-31); CHLORIDE LEVEL 100 MMOL/L (98-107); CREATININE FOR GFR 0.58 MG/DL (0.55-1.30); GLOMERULAR FILTRATION RATE > 60.0 (>58); GLUCOSE, FASTING 175 MG/DL (60-100); POTASSIUM SERUM 4.2 MMOL/L (3.5-5.1); SODIUM LEVEL 137 MMOL/L (136-145); TOTAL PROTEIN 7.3 G/DL (5.7-8.2)
[2023-08-03 13:51] LABS: HEMOGLOBIN A1c 6.4 % (4.0-6.0)
[2023-08-03 14:06] LABS: CREATININE, URINE 114.6 MG/DL; MAU/CREAT RATIO 4.3 MCG/MG (0.0-30.0)
== END ==
LOC: M PLALAB 09:41
PROVIDERS: ATTEND Family Medicine
DX: E11.9 Type 2 diabetes mellitus without complications (principal)

== ENCOUNTER → 2024-03-29 | Outpatient (CLI) | payer OTHER ==
[2024-03-29 11:21] LABS: ALBUMIN 4.2 G/DL (3.2-5.2); ALKALINE PHOSPHATASE 59 U/L (35-104); ALT/SGPT 34 U/L (7.0-40); AST/SGOT 21 U/L (<34); BILIRUBIN,TOTAL 1.2 MG/DL (0.3-1.2); BLOOD UREA NITROGEN 10 MG/DL (9-23); CALCIUM LEVEL 9.4 MG/DL (8.5-10.1); CARBON DIOXIDE LEVEL 30 MMOL/L (20-31); CHLORIDE LEVEL 102 MMOL/L (98-107); CHOLESTEROL LEVEL 158 MG/DL (<200); CHOLESTEROL RISK RATIO 3.47 (<5); CREATININE FOR GFR 0.64 MG/DL (0.55-1.30); GLOMERULAR FILTRATION RATE > 60.0 (>58); GLUCOSE, FASTING 119 MG/DL (60-100); HDL CHOLESTEROL 45.5 MG/DL (>40); LDL CHOLESTEROL 82.9 MG/DL (<100); NON-HDL-C 112.5 MG/DL; POTASSIUM SERUM 4.4 MMOL/L (3.5-5.1); SODIUM LEVEL 140 MMOL/L (136-145); TRIGLYCERIDES LEVEL 148 MG/DL (<150)
== END ==
LOC: M PLALAB 07:54
PROVIDERS: ATTEND Family Medicine
DX: Z00.00 Encounter for general adult medical examination without abnormal findings (principal); E78.5 Hyperlipidemia, unspecified

== ENCOUNTER → 2024-06-26 | Outpatient (REF) | payer OTHER ==
[2024-06-26 14:37] LABS: Trichomonas vaginalis (AMP) NOT DETECTED (NEGATIVE)
[2024-06-26 15:00] LABS: GC DNA AMPLIFICATION NEGATIVE (NEGATIVE)
== END ==
LOC: M SFHCWAGY 11:12
PROVIDERS: ATTEND Nurse Practitioner Family
DX: Z11.3 Encounter for screening for infections with a predominantly sexual mode of transmission (principal); N73.9 Female pelvic inflammatory disease, unspecified

== ENCOUNTER → 2024-07-04 | Outpatient (CLI) | payer OTHER ==
[2024-07-04 10:04] LABS: ALBUMIN 4.3 G/DL (3.2-5.2); ALKALINE PHOSPHATASE 64 U/L (35-104); ALT/SGPT 26 U/L (7.0-40); AST/SGOT 16 U/L (<34); BILIRUBIN,TOTAL 1.1 MG/DL (0.3-1.2); BLOOD UREA NITROGEN 14 MG/DL (9-23); CALCIUM LEVEL 9.2 MG/DL (8.5-10.1); CARBON DIOXIDE LEVEL 27 MMOL/L (20-31); CHLORIDE LEVEL 99 MMOL/L (98-107); CHOLESTEROL LEVEL 146 MG/DL (<200); CHOLESTEROL RISK RATIO 4.13 (<5); CREATININE FOR GFR 0.59 MG/DL (0.55-1.30); GLOMERULAR FILTRATION RATE > 90.0 (>58); GLUCOSE, FASTING 117 MG/DL (60-100); HDL CHOLESTEROL 35.3 MG/DL (>40); NON-HDL-C 110.7 MG/DL; POTASSIUM SERUM 3.8 MMOL/L (3.5-5.1); SODIUM LEVEL 137 MMOL/L (136-145); TRIGLYCERIDES LEVEL 441 MG/DL (<150)
[2024-07-04 10:24] LABS: MALB URINE SIEMENS < 3.0 MG/L
[2024-07-04 10:25] LABS: CREATININE, URINE 14.6 MG/DL
== END ==
LOC: M PLALAB 08:11
PROVIDERS: ATTEND Nurse Practitioner Family
DX: E11.65 Type 2 diabetes mellitus with hyperglycemia (principal)

== ENCOUNTER → 2024-08-23 | Outpatient (CLI) | payer OTHER ==
[~2024-08-23] MED LIST changes: -PRAV20TA2 PO; +PRAV20TA78 PO
[2024-08-23 14:03] LABS: BASO # 0.1 10^3/uL (0.0-0.2); BASO % 1.0 % (0.0-1.0); EOS # 0.3 10^3/uL (0.0-0.5); EOS % 3.1 % (0.0-3.0); LYMPH # 4.1 10^3/uL (1.5-5.0); LYMPH % 38.9 % (24.0-44.0); MONO # 0.7 10^3/uL (0.0-0.8); MONO % 6.5 % (2.0-8.0); NEUTROPHILS # 5.3 10^3/uL (1.5-8.5); NEUTROPHILS % 50.3 % (36.0-66.0); PLATELET COUNT, AUTOMATED 348 10^3/uL (150-450)
[2024-08-23 14:09] LABS: ALT/SGPT 32 U/L (7.0-40); AST/SGOT 21 U/L (<34); CALCIUM LEVEL 9.7 MG/DL (8.5-10.1); CARBON DIOXIDE LEVEL 27 MMOL/L (20-31); CHLORIDE LEVEL 99 MMOL/L (98-107); CREATININE FOR GFR 0.71 MG/DL (0.55-1.30); GLOMERULAR FILTRATION RATE > 90.0 (>58); POTASSIUM SERUM 4.2 MMOL/L (3.5-5.1); SODIUM LEVEL 139 MMOL/L (136-145); TOTAL 25(OH) VITAMIN D 62.3 NG/ML (20.0-100.0)
[2024-08-23 14:23] LABS: VITAMIN B12 LEVEL > 2000 PG/ML (211-911)
== END ==
LOC: M PLALAB 09:38
PROVIDERS: ATTEND Psychiatry & Neurology Neurology
DX: R51.9 Headache, unspecified (principal)